=== PATIENT | female | born 1930 | race Caucasian/White ===

== ENCOUNTER → 2016-04-30 | Outpatient (CLI) | payer OTHER ==
[~2016-04-30] MED LIST: CARV3.122 PO; CLX20 PO; DORZ1SOL6 OPB; LATA0.009 OPB; LOSA50TA6 PO; MULT-506 PO; PANT40TA PO; PRMVC PV; RIVA1TAB4 PO; [UNRECOGNIZED DRUG - CODE] OPL
--- NOTE | 2016-04-30 09:06 | DIAGNOSTIC IMAGING REPORT ---
CHEST 2 VIEWS ROUTINE HISTORY: Cough. COMPARISON: Chest 10/30/2014. FINDINGS: Hazy appearance to the right medial lung base is consistent with prominent epicardial fat. This remains unchanged. Small nodular density at the right lateral lung base is secondary to a nipple shadow. No new focal lung consolidations. The heart is normal in size. No pleural effusions. No pneumothorax. IMPRESSION: No new focal lung consolidations to suggest pneumonia. Electronically signed by: Rashaun Rapp M.D. 04/30/2016 9:04 AM Dictated Date/Time: 04/30/2016 9:02 AM
== END | disposition home or self-care (01) ==
LOC: C.RAD 08:21
PROVIDERS: ATTEND Internal Medicine Pulmonary Disease
DX: R05 Cough (principal)

== ENCOUNTER → 2017-01-20 | Outpatient (CLI) | payer OTHER | END | disposition home or self-care (01) | LOC: C.MAMM 15:00 | PROVIDERS: ATTEND Physician Assistant | DX: M85.852 Other specified disorders of bone density and structure, left thigh (principal); M85.851 Other specified disorders of bone density and structure, right thigh; Z78.0 Asymptomatic menopausal state ==

== ENCOUNTER → 2017-02-04 | Outpatient (CLI) | payer OTHER ==
[2017-02-04 11:46] LABS: BASO % 0.8 %; BASO ABS # 0.03 K/uL (0-0.2); COMPLETE YES; EOS % 1.1 %; HEMATOCRIT 38.6 % (37-47); IG% 0.3 %; LYMPH % 25.2 %; LYMPH ABS # 0.95 K/uL (1.2-3.4); MEAN CELL VOLUME 94.6 fL (80-100); MEAN CORPUSCULAR HEMOGLOBIN 31.9 pg (25-34); MEAN CORPUSCULAR HGB CONC 33.7 g/dl (32-36); MEAN PLATELET VOLUME 11.7 fL (7.4-10.4); NEUT % 63.6 %; PLATELET COUNT 203 K/uL (130-400); RED BLOOD COUNT 4.08 M/uL (4.2-5.4); WHITE BLOOD COUNT 3.77 K/uL (4.8-10.8)
[2017-02-04 12:08] LABS: ALT/SGPT 18 U/L (12-78); AST/SGOT 15 U/L (15-37); BLOOD UREA NITROGEN 21 mg/dl (7-18); BUN/CREATININE RATIO 20.9 (10-20); CALCIUM 9.1 mg/dl (8.5-10.1); CARBON DIOXIDE 27 mmol/L (21-32); CHLORIDE 105 mmol/L (98-107); CHOLESTEROL 216 mg/dl (0-200); CREATININE 0.98 mg/dl (0.60-1.20); GLUCOSE 116 mg/dl (70-99); MAGNESIUM 2.3 mg/dl (1.8-2.4); POTASSIUM 3.9 mmol/L (3.5-5.1); SODIUM 139 mmol/L (136-145); TRIGLYCERIDES 95 mg/dl (0-150); VERY LOW DENSITY LIPOPROT CALC 19 mg/dl
[2017-02-04 12:20] LABS: ALKALINE PHOSPHATASE 76 U/L (45-117); CHOLESTEROL/HDL RATIO 3.7; HDL CHOLESTEROL 59 mg/dl; LDL CHOLESTEROL CALCULATED 138 mg/dl; TOTAL IRON BINDING CAPACITY 354 mcg/dl (250-450)
== END | disposition home or self-care (01) ==
LOC: C.LAB 09:23
PROVIDERS: ATTEND Physician Assistant
DX: Z23 Encounter for immunization (principal)

== ENCOUNTER → 2017-04-20 | Outpatient (CLI) | payer OTHER ==
--- NOTE | 2017-04-20 13:20 | DIAGNOSTIC IMAGING REPORT ---
L-SPINE MIN 4 VIEWS ROUTINE HISTORY: Pain. Neuropathy. M54.16 Lumbar [id number] COMPARISON: 05/31/2013 FINDINGS: There is no fracture. Grade 1 subluxation of L4 on L5 unchanged in the prior exam. Moderate degenerative disc change L4-L5 and more significantly at L5-S1. All findings are unchanged in the prior exam. No new or interval finding. IMPRESSION: Moderate stable scoliosis. Stable grade 1 anterolisthesis L4 on L5. Stable degenerative disc change The above report was generated using voice recognition software. It may contain grammatical, syntax or spelling errors. Electronically signed by: Jerson Chavez M.D. 04/20/2017 1:19 PM Dictated Date/Time: 04/20/2017 1:15 PM
--- NOTE | 2017-04-20 13:41 | DIAGNOSTIC IMAGING REPORT ---
PELVIS 1 OR 2 VIEW ROUTINE CLINICAL HISTORY: Strain of the flexor muscle of right hip. COMPARISON STUDY: CT of the abdomen and pelvis November 10, 2007. FINDINGS: The sacroiliac joints and symphysis pubis are intact. There is no fracture or suspicious lesion within the pelvis or hips by radiography. A left lower quadrant bowel anastomosis is noted. There is moderate bilateral hip osteoarthritis. IMPRESSION: 1. No acute fracture. 2. Moderate bilateral hip osteoarthritis. Electronically signed by: Sanjay Whitten M.D. 04/20/2017 1:40 PM Dictated Date/Time: 04/20/2017 1:38 PM
== END | disposition home or self-care (01) ==
LOC: C.RAD1850 12:45
PROVIDERS: ATTEND Physician Assistant
DX: M51.16 Intervertebral disc disorders with radiculopathy, lumbar region (principal); S76.011A Strain of muscle, fascia and tendon of right hip, initial encounter; X58.XXXA Exposure to other specified factors, initial encounter; M41.9 Scoliosis, unspecified; M43.16 Spondylolisthesis, lumbar region; M16.0 Bilateral primary osteoarthritis of hip

== ENCOUNTER → 2017-05-10 | Outpatient (CLI) | payer OTHER ==
--- NOTE | 2017-05-10 18:31 | DIAGNOSTIC IMAGING REPORT ---
LUMBAR SPINE W/O CONTRAST CLINICAL HISTORY: 87 years-old Female with M54.16 Lumbar [id number] Bulging lumbar discR20.2 Pares. COMPARISON: Lumbar spine radiograph 04/20/2017 TECHNIQUE: Multiplanar, multi sequence MRI of the lumbar spine was performed without intravenous contrast. FINDINGS: Mild levoscoliosis is again seen. No acute fracture, subluxation or focal bone marrow edema identified. 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 Unchanged 7 mm anterolisthesis L4 on L5 without definite pars defect identified, likely secondary to underlying long-standing facet disease as described below. Conus medullaris terminates at the L2 level. The imaged thoracic spinal cord appears unremarkable. Large [id number] jig builder helper localizer images demonstrate no gross abnormality of the imaged chest, abdomen or pelvis. No aortic aneurysm or adenopathy identified. T12-L1: Mild intervertebral disc space narrowing with small circumferential annular disc bulge and moderate facet arthrosis. There is flattening of the ventral thecal sac without significant central canal or foraminal narrowing. L1-L2: Mild to moderate intervertebral disc space narrowing with mild posterior spondylitic spurring, small circumferential annular disc bulge with extensive ligamentum flavum thickening and moderate facet arthrosis. There is mild central canal, with moderate left and severe right foraminal narrowing. L2-L3: Moderate intervertebral disc space narrowing with spondylitic spurring, circumferential annular disc bulge, marked ligamentum flavum thickening with severe facet arthrosis. AP dimension of the thecal sac is narrowed to 8 mm causing mild to moderate central canal with moderate left and severe right foraminal narrowing. L3-L4: Moderate intervertebral disc space narrowing with posterior spondylitic spurring and moderate to large circumferential disc bulge with ligamentum flavum thickening and severe facet arthrosis. Thecal sac is narrowed to 6 mm in AP dimension resulting in moderate to severe central canal, severe right and moderate to severe left foraminal stenosis. L4-L5: Grade 1 anterolisthesis with posterior spondylitic spurring, moderate intervertebral disc space narrowing with posterior disc bulge and disc uncovering. Additionally, there is severe facet arthrosis with ligamentum flavum thickening causing severe central canal and moderate to severe bilateral foraminal narrowing. L5-S1: Posterior spondylitic spurring with circumferential annular disc bulge, severe facet arthrosis with ligamentum flavum thickening. There is flattening of the ventral thecal sac without significant central canal stenosis. Moderate to severe bilateral foraminal stenosis. IMPRESSION: 1. Multilevel advanced discogenic degenerative changes with annular disc bulging, ligamentum flavum thickening and facet arthropathy as above. 2. Multifactorial degenerative changes cause severe central canal and moderate to severe bilateral foraminal narrowing at L4-L5. 3. Moderate to severe central canal stenosis at L3-L4. 4. 7 mm anterolisthesis L4 on L5 is likely secondary to long-standing facet arthrosis. 5. No acute fracture or subluxation identified. The above report was generated using voice recognition software. It may contain grammatical, syntax or spelling errors. Electronically signed by: Antione Wall M.D. 05/10/2017 6:30 PM Dictated Date/Time: 05/10/2017 3:11 PM
== END | disposition home or self-care (01) ==
LOC: C.MRI 13:31
PROVIDERS: ATTEND Physician Assistant
DX: M51.26 Other intervertebral disc displacement, lumbar region (principal); R20.2 Paresthesia of skin; M47.26 Other spondylosis with radiculopathy, lumbar region; M48.061 Spinal stenosis, lumbar region without neurogenic claudication

== ENCOUNTER 2017-10-16 23:22 | Inpatient (IN) | payer OTHER ==
[~2017-10-16] VITALS: Ht 165.1 cm; Wt 84.2 kg
[~2017-10-16 23:22] MED LIST changes: +APIX1TAB3 PO; +CARV12.52 PO; -CARV3.122 PO; +CITA-295 PO; -CLX20 PO; +HYZ/10015 PO; -LATA0.009 OPB; -LOSA50TA6 PO; +NASONEX NASAL SPRAY; -PRMVC PV; +PRMVC VAGRING; -RIVA1TAB4 PO; +RXC5 PO; +TRAV0.00 OP; -[UNRECOGNIZED DRUG - CODE] OPL
[2017-10-16] MEDS ORDERED: SODIUM CHLORIDE 0.9% 1000ML 1,000 ML IV STA (23:31)
--- NOTE | 2017-10-16 23:35 | EMERGENCY ROOM VISIT NOTE ---
History Report prepared by [place]: Everett Dyer Under the Supervision of: Dr. Alfredo Bean M.D. First contact with patient: 23:23 Chief Complaint: BACK PAIN Stated Complaint: Post-op back pain History of Present Illness The patient is a 87 year old female who presents to the Emergency Room with complaints of constant back pain that began 11 days ago. The patient states that she had a laminectomy performed on October 05. The patient states that she was discharged home a week ago. She states that she did have the drain removed. The patient states that she has had continued back pain that is less severe with laying down. The patient's son states that the patient was initially constipated. He reports that she then started to experience diarrhea and is now having normal bowel movements. The patient states she did have a normal bowel movement today. Her son reports the patient has not been eating as much as usual but state she has been drinking plenty of water. He notes the patient has been urinating frequently. The patient's son states the patient did have some abdominal discomfort today. The patient reports that whenever she stands up she has been lightheaded. The patient denies lower extremity discomfort, headache, nausea, and vomiting. She states that she has been taking Oxy IR for the pain. Her son reports the patient is supposed to switch to Tramadol but reports the medication has not been picked up yet. He notes the patient has not had Oxy Ir since yesterday at 0800. Source of History: patient Onset: 11 days ago Position: back Timing: constant Modifying Factors (Relieving): other (laying down) Associated Symptoms: + abdominal pain, + diarrhea (resolved), No headache, No nausea, No vomiting Note: Associated symptoms: lightheaded upon standing, resolved constipation Denies: lower extremity discomfort Review of Systems See HPI for pertinent positives & negatives. A total of 10 systems reviewed and were otherwise negative. Past Medical & Surgical Medical Problems: (1) Benign tumor of breast (2) Bleeding (3) bowel resection (4) Clostridium difficile infection (5) Depression (6) Glaucoma (7) History of - hysterectomy (8) left knee replacement (9) Lumbar stenosis with neurogenic claudication (10) Muscular headache (11) Postoperative back pain (12) varicose vein stripping Family History FH: cancer Social History Smoking Status: Former Smoker Alcohol Use: none Drug Use: none Marital Status: Housing Status: lives with family Occupation Status: retired Current/Historical Medications Scheduled Apixaban (Eliquis), 5 MG PO BID Carvedilol (Coreg), 12.5 MG PO BID Citalopram Hydrobromide (Citalopram), 1 TAB PO QAM Dorzolamide Hcl-Timolol Maleat (Cosopt Oph), 1 DROP OPB BID Estrogens, Conjugated (Premarin), 1 APPLN VAGRING WK Hctz/Losartan (Hyzaar 25MG/100MG), 1 TAB PO QAM Multivitamin (Multivitamin), 1 TAB PO QAM Pantoprazole (Protonix), 40 MG PO QDD Travoprost (Travatan Z), 1 DROPS OP HS Allergies Coded Allergies: Amoxicillin (Verified Allergy, Unknown, ITCHING, 10/17/17) Clindamycin (Verified Allergy, Unknown, ITCHING, 10/17/17) Penicillins (Verified Allergy, Unknown, ITCHING, 10/17/17) Physical Exam Vital Signs Date Time Temp Pulse Resp B/P (MAP) Pulse Ox O2 Delivery O2 Flow Rate FiO2 10/17/17 01:25 63 18 146/84 94 Room Air 10/16/17 23:44 36.8 62 20 157/84 97 Room Air Physical Exam GENERAL: Patient is elderly, well appearing, and in minimal acute distress. EYES: No scleral icterus, unremarkable pupils. ENT: Mucous membranes moist, no nasal congestion. NECK: No masses appreciated, no meningismus, trachea is midline. RESPIRATORY: No dyspnea. Clear to auscultation and equal bilaterally. No wheeze , no rhonchi. CARDIOVASCULAR: Regular rate and rhythm. No murmurs, rubs, gallops appreciated. GASTROINTESTINAL: Abdomen soft, nontender, no peritonitis. Bowel sounds positive. No masses appreciated. BACK: No midline tenderness, no CVA tenderness. Large vertical midline lumbar incision. Healing well. No swelling, no signs of infection. EXTREMITIES: Normal motion all extremities, no cyanosis, no edema. NEUROLOGIC: Alert and oriented, no acute motor or sensory deficits, no focal weakness, cranial nerves grossly intact. SKIN: No rash, no jaundice, no diaphoresis. Medical Decision & Procedures Laboratory Results 10/16/17 23:45 Red Blood Count 2.74, Mean Corpuscular Volume 88.3, Mean Corpuscular Hemoglobin 30.7, Mean Corpuscular Hemoglobin Concent 34.7, Mean Platelet Volume 9.0, Neutrophils (%) (Auto) 86.9, Lymphocytes (%) (Auto) 5.5, Monocytes (%) (Auto) 6.8, Eosinophils (%) (Auto) 0.2, Basophils (%) (Auto) 0.1, Neutrophils # (Auto) 7.49, Lymphocytes # (Auto) 0.47, Monocytes # (Auto) 0.59, Eosinophils # (Auto) 0.02, Basophils # (Auto) 0.01 10/16/17 23:45 Test 10/16/17 00:00 10/16/17 23:45 Urine Color YELLOW Urine Appearance CLEAR (CLEAR) Urine pH 5.0 (4.5-7.5) Urine Specific [place] 1.012 (1.000-1.030) Urine Protein NEG (NEG) Urine Glucose (UA) NEG (NEG) Urine Ketones NEG (NEG) Urine Occult Blood NEG (NEG) Urine Nitrite NEG (NEG) Urine Bilirubin NEG (NEG) Urine Urobilinogen NEG (NEG) Urine Leukocyte Esterase NEG (NEG) Urine WBC (Auto) 1-5 /hpf (0-5) Urine RBC (Auto) 0-4 /hpf (0-4) Urine Hyaline Casts (Auto) 1-5 /lpf (0-5) Urine Epithelial Cells (Auto) 0-5 /lpf (0-5) Urine Bacteria (Auto) NEG (NEG) White Blood Count 8.62 K/uL (4.8-10.8) Red Blood Count 2.74 M/uL (4.2-5.4) Hemoglobin 8.4 g/dL (12.0-16.0) Hematocrit 24.2 % (37-47) Mean Corpuscular Volume 88.3 fL (80-100) Mean Corpuscular Hemoglobin 30.7 pg (25-34) Mean Corpuscular Hemoglobin Concent 34.7 g/dl (32-36) Platelet Count 349 K/uL (130-400) Mean Platelet Volume 9.0 fL (7.4-10.4) Neutrophils (%) (Auto) 86.9 % Lymphocytes (%) (Auto) 5.5 % Monocytes (%) (Auto) 6.8 % Eosinophils (%) (Auto) 0.2 % Basophils (%) (Auto) 0.1 % Neutrophils # (Auto) 7.49 K/uL (1.4-6.5) Lymphocytes # (Auto) 0.47 K/uL (1.2-3.4) Monocytes # (Auto) 0.59 K/uL (0.11-0.59) Eosinophils # (Auto) 0.02 K/uL (0-0.5) Basophils # (Auto) 0.01 K/uL (0-0.2) RDW Standard Deviation 42.8 fL (36.4-46.3) RDW Coefficient of Variation 13.2 % (11.5-14.5) Immature Granulocyte % (Auto) 0.5 % Immature Granulocyte # (Auto) 0.04 K/uL (0.00-0.02) Red Blood Cell Morphology Unremarkable Anion Gap 9.0 mmol/L (3-11) Est Creatinine Clear Calc Drug Dose 29.8 ml/min Estimated GFR () 35.0 Estimated GFR (Non- 30.2 BUN/Creatinine Ratio 17.2 (10-20) Calcium Level 9.0 mg/dl (8.5-10.1) Laboratory results as reviewed by me. Medications Administered Medications (Trade) Dose Ordered Sig/Ajit Route Start Time Stop Time Status Last Admin Dose Admin Sodium Chloride 1,000 ml @ 999 mls/hr Q1H1M STAT IV 10/16/17 23:31 10/17/17 00:31 DC 10/16/17 00:05 999 MLS/HR Sodium Chloride 1,000 ml @ 80 mls/hr [id number] IV 10/17/17 01:45 11/16/17 01:44 10/17/17 03:25 80 MLS/HR ED Course 2326: The patient was evaluated in room B11B. A complete history and physical exam was performed. 2331: Ordered Sodium Chloride 1000 ml @ 999 mls/hr IV. 2335: I discussed the patient's case with her son. He updated me on the patient' s story. 0014: I reevaluated the patient and updated her on her results. I discussed the treatment plan with her and her family. They are agreeable to the plan. 0034: I reevaluated the patient and she is stable. Son notes he feels she is not doing well at home. I will talk to the Hospitalist for further evaluation. 0038: I discussed the patients case with Dr. Hamm [facility] Hospitalist. She understands the patients condition and agrees to accept the patient. The patient will be evaluated for further management and care. Medical Decision Differential: Musculoskeletal, Disc Herniation, Fracture, Cord Compression, Discitis, Infectious, Aortic Pathology, Renal Colic, UTI/Pyelonephritis, Acute Exacerbation of Chronic Pain, Sciatica, Cauda Equina, amongst other pathologies entertained. 87 yr old female with extensive lumbar surgery last week who has been on Oxy IR with worsening confusion and hallucinations. [place] that confusion/ hallucinations secondary to OXY IR thus stopped 2 days ago. Continued issues with worsening weakness. Not in much pain while laying still. Incision looks good. No clear evidence infection. UA clear. Na is quite dropped from baseline. Suspect her hyponatremia is contributing to weakness and confusion. HgB on low side but not requiring transfusion at this point (had transfusion post op due to bleeding). Son admits he doesn't feel she is doing well with home and feels she likely will need rehab once Na figured out. Lungs clear, abdomen soft and patient stable. No evidence meningitis either. Medication Reconcilliation Current Medication List: was personally reviewed by me Blood Pressure Screening Patient's blood pressure: Elevated blood pressure Referred to Hospitalist Consults Time Called: 37 Consulting Physician: Dr. Hamm [facility] Hospitalist Returned Call: 37 I discussed the patients case with Dr. Hamm [facility] Hospitalist. She understands the patients condition and agrees to accept the patient. The patient will be evaluated for further management and care. Impression Primary Impression: Hyponatremia Additional Impressions: Confusion Hallucination Generalized weakness Post-operative pain Scribe Attestation The scribe's documentation has been prepared under my direction and personally reviewed by me in its entirety. I confirm that the note above accurately reflects all work, treatment, procedures, and medical decision making performed by me. Departure Information Dispostion Being Evaluated By Hospitalist Referrals Shoaib Senior PA-C (PCP) Patient Instructions My [facility] Problem Qualifiers
[2017-10-16 23:58] LABS: BASO % 0.1 %; BASO ABS # 0.01 K/uL (0-0.2); EOS % 0.2 %; EOS ABS # 0.02 K/uL (0-0.5); HEMATOCRIT 24.2 % (37-47); HEMOGLOBIN 8.4 g/dL (12.0-16.0); IG# 0.04 K/uL (0.00-0.02); LYMPH % 5.5 %; LYMPH ABS # 0.47 K/uL (1.2-3.4); MEAN CELL VOLUME 88.3 fL (80-100); MEAN CORPUSCULAR HEMOGLOBIN 30.7 pg (25-34); MEAN CORPUSCULAR HGB CONC 34.7 g/dl (32-36); MONO % 6.8 %; MONO ABS # 0.59 K/uL (0.11-0.59); NEUT % 86.9 %; NEUT ABS # 7.49 K/uL (1.4-6.5); PLATELET COUNT 349 K/uL (130-400); RED CELL DISTRIBUTION WIDTH CV 13.2 % (11.5-14.5); RED CELL DISTRIBUTION WIDTH SD 42.8 fL (36.4-46.3); WHITE BLOOD COUNT 8.62 K/uL (4.8-10.8)
[2017-10-17] VITALS (8 sets, daily range): BP systolic 145–185; BP diastolic 73–85; PULSE 57–71; TEMP 36.5–36.8; O2SAT 91–96; Ht 165.1 cm; Wt 84.2 kg
[2017-10-17 00:14] LABS: CREATININE 1.55 mg/dl (0.60-1.20); POTASSIUM 3.4 mmol/L (3.5-5.1)
--- NOTE | 2017-10-17 00:50 | History and Physical ---
History & Physical Date & Time of Service: Oct 17, 2017 at 00:50 Chief Complaint: Post-op back pain Primary Care Physician: Shoaib Senior PA-C History of Present Illness Source: patient 87 yo F with PMHx of HTN, Afib on Eliquis, Lumbar Spinal stenosis s/p recent multilevel lumbar decompression( 10/05/17) discharged home with home health on 10/09. Patient reports that 4 days after discharge, October 13, she began having worsening back pain at site of surgery sight ranging from 3-8 /10, Pain has been constant. She was sent home Oxycodone IR q 4-5 hrs. Pain was not adequately relieved per patient. Patient's son also reports that she became more confused, and started having hallucinations. Son reports her saying she saw "tubes, lines ribbons or talking about events taking place in . Son informed home health nurses. Son subsequently stopped Oxycodone IR, Home health came this morning called in prescription of tramadol as an alternative. Prescription was not filled. Patient also reports chills as of today and dec'd appetite. No fevers, nausea, vomiting, abdominal pain, urinary changes, numbness weakness, tingling, headache , vision changes radicular pain. Currently she ambulates with walker. She suffered mechanical fall yesterday and denies injury, head trauma, preceding lightheadedness or dizziness. no LOC. Patient arrived in ED afebrile, VSS Hyponatremic at 127 , K 3.4, UA negative. Currently back pain is 2/10 without pain medication in ED. Past Medical/Surgical History Medical Problems: (1) Benign tumor of breast (2) Bleeding (3) bowel resection (4) Clostridium difficile infection (5) Depression (6) Glaucoma (7) History of - hysterectomy (8) left knee replacement (9) Lightheadedness (10) Lumbar stenosis with neurogenic claudication (11) Muscular headache (12) varicose vein stripping Family History FH: cancer Social History Smoking Status: Former Smoker Alcohol Use: none Drug Use: none Marital Status: Housing status: lives with family Occupational Status: retired Immunizations History of Influenza Vaccine: Yes Influenza Vaccine Date: Dec 30, 2008 History of Tetanus Vaccine?: No History of Pneumococcal: Yes Pneumococcal Date: Jan 09, 2005 History of Hepatitis B Vaccine: No Allergies Coded Allergies: Amoxicillin (Verified Allergy, Unknown, ITCHING, 10/17/17) Clindamycin (Verified Allergy, Unknown, ITCHING, 10/17/17) Penicillins (Verified Allergy, Unknown, ITCHING, 10/17/17) Home Medications Scheduled Apixaban (Eliquis), 5 MG PO BID Carvedilol (Coreg), 12.5 MG PO BID Citalopram Hydrobromide (Citalopram), 1 TAB PO QAM Dorzolamide Hcl-Timolol Maleat (Cosopt Oph), 1 DROP OPB BID Estrogens, Conjugated (Premarin), 1 APPLN VAGRING WK Hctz/Losartan (Hyzaar 25MG/100MG), 1 TAB PO QAM Multivitamin (Multivitamin), 1 TAB PO QAM Pantoprazole (Protonix), 40 MG PO QDD Travoprost (Travatan Z), 1 DROPS OP HS Review of Systems Constitutional: + chills, + weakness, No fever Respiratory: No cough, No sputum, No shortness of breath Cardiovascular: No chest pain, No edema, No palpitations Abdomen: No pain, No nausea, No vomiting Musculoskeletal: + swelling, + calf pain, + problem reported (Lower back pain) Genitourinary - Female: No dysuria, No urinary frequency, No urinary urgency Neurologic: No weakness, No numbness/tingling Integumentary: No rash, No itch Physical Exam Vital Signs Date Time Temp Pulse Resp B/P (MAP) Pulse Ox O2 Delivery O2 Flow Rate FiO2 10/16/17 23:44 36.8 62 20 157/84 97 Room Air GENERAL: alert, obese, no distress, EYE EXAM: normal conjunctiva, PERRL and EOM's grossly intact OROPHARYNX: no exudate, no erythema, lips, buccal mucosa, and tongue normal and mucous membranes are moist NECK: supple, no nuchal rigidity, no adenopathy, non-tender LUNGS: Clear to auscultation. Normal chest wall mechanics HEART: no murmurs, S1 normal and S2 normal ABDOMEN: abdomen soft, non-tender, normo-active bowel sounds, no masses, no rebound or guarding. BACK: s/p Lumbar decompression, Surgical wound clean dry intact, no surrounding erythema, purulent drainage SKIN: no rashes and no bruising UPPER EXTREMITIES: upper extremities are grossly normal. LOWER EXTREMITIES: No pitting edema. NEURO EXAM: AO x2 ( Person, place only), cranial nerves II-XII grossly intact, normal speech, no gross weakness of arms, no gross weakness of legs. Diagnostics Laboratory Results Results Past 24 Hours Test 10/16/17 23:45 Range/Units White Blood Count 8.62 4.8-10.8 K/uL Red Blood Count 2.74 4.2-5.4 M/uL Hemoglobin 8.4 12.0-16.0 g/dL Hematocrit 24.2 37-47 % Mean Corpuscular Volume 88.3 80-100 fL Mean Corpuscular Hemoglobin 30.7 25-34 pg Mean Corpuscular Hemoglobin Concent 34.7 32-36 g/dl Platelet Count 349 130-400 K/uL Mean Platelet Volume 9.0 7.4-10.4 fL Neutrophils (%) (Auto) 86.9 % Lymphocytes (%) (Auto) 5.5 % Monocytes (%) (Auto) 6.8 % Eosinophils (%) (Auto) 0.2 % Basophils (%) (Auto) 0.1 % Neutrophils # (Auto) 7.49 1.4-6.5 K/uL Lymphocytes # (Auto) 0.47 1.2-3.4 K/uL Monocytes # (Auto) 0.59 0.11-0.59 K/uL Eosinophils # (Auto) 0.02 0-0.5 K/uL Basophils # (Auto) 0.01 0-0.2 K/uL RDW Standard Deviation 42.8 36.4-46.3 fL RDW Coefficient of Variation 13.2 11.5-14.5 % Immature Granulocyte % (Auto) 0.5 % Immature Granulocyte # (Auto) 0.04 0.00-0.02 K/uL Red Blood Cell Morphology Unremarkable Sodium Level 127 136-145 mmol/L Potassium Level 3.4 3.5-5.1 mmol/L Chloride Level 92 98-107 mmol/L Carbon Dioxide Level 26 21-32 mmol/L Anion Gap 9.0 3-11 mmol/L Blood Urea Nitrogen 27 7-18 mg/dl Creatinine 1.55 0.60-1.20 mg/dl Est Creatinine Clear Calc Drug Dose 29.8 ml/min Estimated GFR () 35.0 Estimated GFR (Non- 30.2 BUN/Creatinine Ratio 17.2 10-20 Random Glucose 133 70-99 mg/dl Calcium Level 9.0 8.5-10.1 mg/dl Impression Assessment and Plan 87 yo F with PMHx of HTN, Afib on Eliquis, Lumbar Spinal stenosis s/p recent multilevel lumbar decompression( 10/05/17) discharged home with home health on 10/09 presenting with Acute back post-operative back pain in addition to history Acute confusion, Hallucination, Acute Back pain - history of Lumbar Spinal stenosis s/p recent multilevel lumbar decompression( 10/05/17) by Dr Tomlin - post-operative pain, wound clean dry intact, no evidence of infection - improved in ED without pain medication - pain control with PRN morphine - Consider oral conversion prior to discharge - Ortho consulted Hyponatremia - no clear etiology - ordered urine Na, serum osm - IN NS at 80 mls/hr - Recheck AM Atrial Fibrillation - rate controlled - Continue Home Metoprolol , Eliquis HTN - BP controlled - Continue Coreg, HCTZ/Losartan Disposition: Admit OT med/Surg DVT PPx: on Eliquis PT/OT Resuscitation Status VTE Prophylaxis Will order VTE Prophylaxis: Yes Note Total Time: Critical Care 30 - 74 minutes Resident Tracking Resident Involvement: Resident Care Provided Care Provided: Adult Hospital Medicine
[2017-10-17] MEDS ORDERED: ONDANSETRON INJ 2 MG/ML 2 ML VIAL IV PRN (01:45)
[2017-10-17] MEDS ORDERED: ACETAMINOPHEN 325 MG TAB PO PRN (01:45)
[2017-10-17] MEDS ORDERED: POLYETHYLENE (MIRALAX) 17 GM PACK PO PRN (01:45)
[2017-10-17] MEDS ORDERED: MAGNESIUM HYDROXIDE SUSP 30 ML UDC PO PRN (01:45)
[2017-10-17] MEDS ORDERED: MoRPHine SULFATE 4 MG/ML 1 ML CARP\\VIAL IM PRN (01:45)
[2017-10-17] MEDS ORDERED: ALUMINUM/MAGNESIUM/SIMETH (MAALOX MAX) 30 ML UDC PO PRN (01:45)
[2017-10-17] MEDS ORDERED: POTASSIUM CHLORIDE 10 MEQ TABCR PO STA (02:58)
[2017-10-17] MEDS: SODIUM CHLORIDE 0.9% 1000ML 1,000 ML IV SCH ×2 (03:25→17:13)
[2017-10-17] MEDS: MoRPHine SULFATE 2 MG/ML CARP IV PRN ×2 (03:26→08:56)
[2017-10-17] MEDS: APIXABAN 5 MG TAB PO SCH ×2 (08:31→20:35)
[2017-10-17] MEDS: CITALOPRAM 20 MG TAB PO SCH (08:31)
[2017-10-17] MEDS: CARVEDILOL 12.5 MG TAB PO SCH ×2 (08:35→20:36)
[2017-10-17] MEDS ORDERED: LOSARTAN/HCTZ 50-12.5 EA TAB PO SCH (09:00)
[2017-10-17 09:08] LABS: CALCIUM 8.7 mg/dl (8.5-10.1); CREATININE 1.43 mg/dl (0.60-1.20); POTASSIUM 3.4 mmol/L (3.5-5.1)
--- NOTE | 2017-10-17 11:36 | Orthopedic Consultation ---
Orthopedic Consultation Date of Consultation: Oct 17, 2017. Attending Physician: Mickey Galvin D.O. Reason for Consultation: Postoperative back pain History of Present Illness There is an 87-year-old female well known to our practice. On October 05, 2017 she underwent L2 through S1 including bilateral iliac bolts fixation by Dr. Tomlin. She went home on October 09. She had an uncomplicated hospital course. She presented to the emergency room last evening with confusion, back pain that was poorly controlled. She was also admitted with hyponatremia. This morning she was seen in conjunction with her son. She reports she is ambling with a walker at home. She was taking oxycodone at home alternating with Tylenol. Denies fevers or chills. She notes back pain and this morning she noted radiating to her left groin. No bowel or bladder changes. Past Medical/Surgical History Medical Problems: (1) Confusion Status: Acute (2) Generalized weakness Status: Acute (3) Hallucination Status: Acute (4) Hyponatremia Status: Acute (5) Post-operative pain Status: Acute Family History FH: cancer Social History Smoking Status: Former Smoker Alcohol Use: none Drug Use: none Marital Status: Housing Status: lives with family Occupation Status: retired Allergies Coded Allergies: Amoxicillin (Verified Allergy, Unknown, ITCHING, 10/17/17) Clindamycin (Verified Allergy, Unknown, ITCHING, 10/17/17) Penicillins (Verified Allergy, Unknown, ITCHING, 10/17/17) Home Medications Scheduled Apixaban (Eliquis), 5 MG PO BID Carvedilol (Coreg), 12.5 MG PO BID Citalopram Hydrobromide (Citalopram), 1 TAB PO QAM Dorzolamide Hcl-Timolol Maleat (Cosopt Oph), 1 DROP OPB BID Estrogens, Conjugated (Premarin), 1 APPLN VAGRING WK Hctz/Losartan (Hyzaar 25MG/100MG), 1 TAB PO QAM Multivitamin (Multivitamin), 1 TAB PO QAM Pantoprazole (Protonix), 40 MG PO QDD Travoprost (Travatan Z), 1 DROPS OP HS Current Inpatient Medications Current Inpatient Medications Medications (Trade) Dose Ordered Sig/Ajit Route Start Time Stop Time Status Last Admin Dose Admin Acetaminophen (Tylenol Tab) 650 mg Q4H PRN PO 10/17/17 01:45 11/16/17 01:44 Al Hydrox/Mg Hydrox/Simethicone (Maalox Max Susp) 15 ml Q4H PRN PO 10/17/17 01:45 11/16/17 01:44 Magnesium Hydroxide (Milk Of Magnesia Susp) 30 ml Q6H PRN PO 10/17/17 01:45 11/16/17 01:44 Polyethylene (Miralax Powder Packet) 17 gm DAILY PRN PO 10/17/17 01:45 11/16/17 01:44 Ondansetron HCl (Zofran Inj) 4 mg Q6H PRN IV 10/17/17 01:45 11/16/17 01:44 Apixaban (Eliquis) 5 mg BID PO 10/17/17 09:00 11/16/17 08:59 10/17/17 08:31 5 MG Carvedilol (Coreg Tab) 12.5 mg BID PO 10/17/17 09:00 11/16/17 08:59 10/17/17 08:35 12.5 MG Citalopram Hydrobromide (celeXA TAB) 20 mg QAM PO 10/17/17 09:00 11/16/17 08:59 10/17/17 08:31 20 MG Pantoprazole Sodium (Protonix Tab) 40 mg QDD PO 10/17/17 17:45 11/16/17 17:59 Sodium Chloride 1,000 ml @ 80 mls/hr [id number] IV 10/17/17 01:45 11/16/17 01:44 10/17/17 03:25 80 MLS/HR Morphine Sulfate (MoRPHine SULFATE INJ) 2 mg Q4H PRN IV 10/17/17 03:00 10/31/17 01:44 10/17/17 08:56 2 MG Review of Systems Back pain, confusion, left groin pain Physical Exam Date Time Temp Pulse Resp B/P (MAP) Pulse Ox O2 Delivery O2 Flow Rate FiO2 10/17/17 08:34 61 164/73 (103) 10/17/17 07:20 Room Air 10/17/17 07:17 157/78 (104) 10/17/17 06:58 36.8 61 18 185/85 (118) 91 Room Air 10/17/17 03:05 36.6 60 16 155/74 96 Room Air 10/17/17 03:05 Room Air 10/17/17 01:25 63 18 146/84 94 Room Air 10/16/17 23:44 36.8 62 20 157/84 97 Room Air She is lying in bed 318. Son is in the room. Patient is alert and oriented 3. She is in no obvious distress. She is able to roll over in bed for me unassisted and with ease. Lumbar incision is modest edema. No erythema. No purulent drainage. No ecchymosis. Lower extremities are neurovascular intact. Calf soft nontender bilaterally. Strength is intact bilaterally. General Appearance: no apparent distress Head: normocephalic Eyes: normal inspection ENT: hearing grossly normal Neck: supple Respiratory/Chest: no respiratory distress, no accessory muscle use Cardiovascular: regular rate, rhythm Abdomen/GI: soft Neurologic/Psych: normal mood/affect, oriented x 3 Skin: warm/dry Lymphatic: no adenopathy Laboratory Results Last 24 Hours Test 10/16/17 23:45 10/17/17 05:41 10/17/17 05:52 10/17/17 10:31 White Blood Count 8.62 K/uL Red Blood Count 2.74 M/uL Hemoglobin 8.4 g/dL Hematocrit 24.2 % Mean Corpuscular Volume 88.3 fL Mean Corpuscular Hemoglobin 30.7 pg Mean Corpuscular Hemoglobin Concent 34.7 g/dl Platelet Count 349 K/uL Mean Platelet Volume 9.0 fL Neutrophils (%) (Auto) 86.9 % Lymphocytes (%) (Auto) 5.5 % Monocytes (%) (Auto) 6.8 % Eosinophils (%) (Auto) 0.2 % Basophils (%) (Auto) 0.1 % Neutrophils # (Auto) 7.49 K/uL Lymphocytes # (Auto) 0.47 K/uL Monocytes # (Auto) 0.59 K/uL Eosinophils # (Auto) 0.02 K/uL Basophils # (Auto) 0.01 K/uL RDW Standard Deviation 42.8 fL RDW Coefficient of Variation 13.2 % Immature Granulocyte % (Auto) 0.5 % Immature Granulocyte # (Auto) 0.04 K/uL Red Blood Cell Morphology Unremarkable Sodium Level 127 mmol/L 130 mmol/L Potassium Level 3.4 mmol/L 3.4 mmol/L Chloride Level 92 mmol/L 95 mmol/L Carbon Dioxide Level 26 mmol/L 27 mmol/L Anion Gap 9.0 mmol/L 8.0 mmol/L Blood Urea Nitrogen 27 mg/dl 26 mg/dl Creatinine 1.55 mg/dl 1.43 mg/dl Est Creatinine Clear Calc Drug Dose 29.8 ml/min 30.8 ml/min Estimated GFR () 35.0 38.6 Estimated GFR (Non- 30.2 33.3 BUN/Creatinine Ratio 17.2 18.0 Random Glucose 133 mg/dl 119 mg/dl Calcium Level 9.0 mg/dl 8.7 mg/dl Osmolality 268 mOsm/kg Urine Random Sodium 36 mEq/L Assessment & Plan Assessment: Admission to the hospital secondary to confusion, hyponatremia, postoperative back pain. Plan: Most likely her confusion was secondary to her oxycodone. will tread lightly with narcotics.. This has since been discontinued. I have ordered tramadol. She has a PT/OTconsult ordered. Would recommend SNF versus acute rehab placement upon discharge from this hospital stay. DVT prophylaxis is in the form of teds and SCDs. She is on her normal Eliquis as well that she takes at home. She may be ambulatory ad marichuy. we will continue to follow with you.
[2017-10-17] MEDS: TRAMADOL HCL 50 MG TAB PO PRN ×2 (13:19→17:12)
--- NOTE | 2017-10-17 16:47 | Family Medicine Progress Note ---
Progress Note Date of Service Oct 17, 2017. Subjective Pt evaluation today including: conversation w/ patient, physical exam, chart review, lab review Pain: 4/10 PO Intake: tolerating Voiding: no voiding problems Patient was resting comfortably when I examined her this morning. Reports sleeping well overnight. She is tolerating her diet although not super hungry, denies N/V. Pt reports She is toileting appropriately. Pt endorses pain in the back, near the surgical site, and that wraps around her groin to the front. Constitutional: No fever, No chills, No sweats ENT: No hearing loss Respiratory: No cough, No sputum, No wheezing Cardiovascular: No chest pain, No edema Abdomen: No nausea, No vomiting, No diarrhea, No constipation Musculoskeletal: + problem reported (Back pain wraps around to the groin), No calf pain Heme: No abnormal bleeding/bruising, No clotting problems Skin: No rash, No itch, No new/changing skin lesions All Other Systems: Reviewed and Negative Medications Current Inpatient Medications Medications (Trade) Dose Ordered Sig/Ajit Route Start Time Stop Time Status Last Admin Dose Admin Acetaminophen (Tylenol Tab) 650 mg Q4H PRN PO 10/17/17 01:45 11/16/17 01:44 Al Hydrox/Mg Hydrox/Simethicone (Maalox Max Susp) 15 ml Q4H PRN PO 10/17/17 01:45 11/16/17 01:44 Magnesium Hydroxide (Milk Of Magnesia Susp) 30 ml Q6H PRN PO 10/17/17 01:45 11/16/17 01:44 Polyethylene (Miralax Powder Packet) 17 gm DAILY PRN PO 10/17/17 01:45 11/16/17 01:44 Ondansetron HCl (Zofran Inj) 4 mg Q6H PRN IV 10/17/17 01:45 11/16/17 01:44 Apixaban (Eliquis) 5 mg BID PO 10/17/17 09:00 11/16/17 08:59 10/17/17 08:31 5 MG Carvedilol (Coreg Tab) 12.5 mg BID PO 10/17/17 09:00 11/16/17 08:59 10/17/17 08:35 12.5 MG Citalopram Hydrobromide (celeXA TAB) 20 mg QAM PO 10/17/17 09:00 11/16/17 08:59 10/17/17 08:31 20 MG Pantoprazole Sodium (Protonix Tab) 40 mg QDD PO 10/17/17 17:45 11/16/17 17:59 Sodium Chloride 1,000 ml @ 80 mls/hr [id number] IV 10/17/17 01:45 11/16/17 01:44 10/17/17 03:25 80 MLS/HR Morphine Sulfate (MoRPHine SULFATE INJ) 2 mg Q4H PRN IV 10/17/17 03:00 10/31/17 01:44 10/17/17 08:56 2 MG Tramadol HCl (Ultram Tab) 50 mg Q4H PRN PO 10/17/17 11:30 11/16/17 11:29 10/17/17 13:19 50 MG Objective Vital Signs Date Time Temp Pulse Resp B/P (MAP) Pulse Ox O2 Delivery O2 Flow Rate FiO2 10/17/17 14:53 36.5 57 18 145/85 (105) 95 Room Air 10/17/17 13:09 146/76 (99) 10/17/17 08:34 61 164/73 (103) 10/17/17 07:20 Room Air 10/17/17 07:17 157/78 (104) 10/17/17 06:58 36.8 61 18 185/85 (118) 91 Room Air 10/17/17 03:05 36.6 60 16 155/74 96 Room Air 10/17/17 03:05 Room Air 10/17/17 01:25 63 18 146/84 94 Room Air 10/16/17 23:44 36.8 62 20 157/84 97 Room Air Physical Exam Notes: GENERAL: alert, obese, no distress, EYE EXAM: normal conjunctiva, PERRL and EOM's grossly intact OROPHARYNX: no exudate, no erythema, lips, buccal mucosa, and tongue normal and mucous membranes are moist NECK: supple, no nuchal rigidity, no adenopathy, non-tender LUNGS: Clear to auscultation. Normal chest wall mechanics HEART: no murmurs, S1 normal and S2 normal ABDOMEN: abdomen soft, non-tender, normo-active bowel sounds, no masses, no rebound or guarding. BACK: s/p Lumbar decompression, Surgical wound clean dry intact, no surrounding erythema, purulent drainage SKIN: no rashes and no bruising UPPER EXTREMITIES: upper extremities are grossly normal. LOWER EXTREMITIES: No pitting edema. NEURO EXAM: AO x2 ( Person, place only), cranial nerves II-XII grossly intact, normal speech, no gross weakness of arms, no gross weakness of legs. Laboratory Results Last Resulted 10/16/17 23:45 Red Blood Count 2.74, Mean Corpuscular Volume 88.3, Mean Corpuscular Hemoglobin 30.7, Mean Corpuscular Hemoglobin Concent 34.7, Mean Platelet Volume 9.0, Neutrophils (%) (Auto) 86.9, Lymphocytes (%) (Auto) 5.5, Monocytes (%) (Auto) 6.8, Eosinophils (%) (Auto) 0.2, Basophils (%) (Auto) 0.1, Neutrophils # (Auto) 7.49, Lymphocytes # (Auto) 0.47, Monocytes # (Auto) 0.59, Eosinophils # (Auto) 0.02, Basophils # (Auto) 0.01 Last Resulted 10/17/17 05:52 Assessment and Plan 87 yo F with PMHx of HTN, Afib on Eliquis, Lumbar Spinal stenosis s/p recent multilevel lumbar decompression( 10/05/17) discharged home with home health on 10/09 presenting with Acute back post-operative back pain in addition to history Acute confusion, Hallucination, Confusion/Hallucinations - Pt is on outpatient Xanex likely contributing to present presentation. - Xanex + Oxycodone IR can cause confusion/hallucination - likely a component of sundowning as well Acute Back pain - history of Lumbar Spinal stenosis s/p recent multilevel lumbar decompression( 10/05/17) by Dr Tomlin - post-operative pain, wound clean dry intact, no evidence of infection - improved in ED without pain medication - pain control with PRN morphine - Consider oral conversion --> Tramadol PER ORTHO - Ortho consulted "-Confusion was secondary to her oxycodone. -Tread lightly with narcotics.. -Tramadol was ordered . -PT/OTconsult ordered. -SNF versus acute rehab placement upon discharge -on her normal Eliquis that she takes at home." Hyponatremia - no clear etiology - ordered urine Na, serum osm - IN NS at 80 mls/hr - Recheck AM Atrial Fibrillation - rate controlled - Continue Home Metoprolol , Eliquis HTN - BP controlled - Continue Coreg, HCTZ/Losartan Disposition: Admit OT med/Surg DVT PPx: on Eliquis PT/OT Resident Physician Supervision Note: I interviewed and examined the patient. Discussed with Dr. Hamm and agree with findings and plan as documented in the note. Any exceptions or clarifications are listed here: None Documented By: Mickey Galvin feeling a bit better but still confused off and on - but is able to catch herself and note that she's getting confused not eating well at home either vitals noted nad breathing unlabored no pallor or icterus delirium -oxycodone + benzo + hyponatremia -correcting underlying causes -improving hyponatremic dehydration -improving w fluids L2 radiculopathy -ortho input, PT/OT eval and treat otherwise as above Resident Tracking Resident Involvement: Resident Care Provided Care Provided: Adult Hospital Medicine
[2017-10-17] MEDS: PANTOprazole SOD 40 MG TAB PO SCH (17:12)
[2017-10-18] VITALS (7 sets, daily range): BP systolic 162–174; BP diastolic 73–93; PULSE 65–76; TEMP 36.7–36.9; O2SAT 91–93
[2017-10-18] MEDS: TRAMADOL HCL 50 MG TAB PO PRN ×2 (02:54→15:08)
[2017-10-18] MEDS: SODIUM CHLORIDE 0.9% 1000ML 1,000 ML IV SCH ×2 (04:37→15:06)
[2017-10-18 06:23] LABS: BASO % 0.1 %; BASO ABS # 0.01 K/uL (0-0.2); EOS % 0.1 %; EOS ABS # 0.01 K/uL (0-0.5); HEMATOCRIT 27.5 % (37-47); HEMOGLOBIN 9.4 g/dL (12.0-16.0); IG# 0.04 K/uL (0.00-0.02); LYMPH % 4.5 %; LYMPH ABS # 0.49 K/uL (1.2-3.4); MEAN CORPUSCULAR HEMOGLOBIN 30.4 pg (25-34); MEAN CORPUSCULAR HGB CONC 34.2 g/dl (32-36); MEAN PLATELET VOLUME 9.3 fL (7.4-10.4); MONO % 9.1 %; MONO ABS # 0.99 K/uL (0.11-0.59); NEUT % 85.8 %; NEUT ABS # 9.29 K/uL (1.4-6.5); PLATELET COUNT 358 K/uL (130-400); RED CELL DISTRIBUTION WIDTH CV 13.7 % (11.5-14.5); RED CELL DISTRIBUTION WIDTH SD 44.5 fL (36.4-46.3); WHITE BLOOD COUNT 10.83 K/uL (4.8-10.8)
[2017-10-18 06:56] LABS: CALCIUM 8.6 mg/dl (8.5-10.1); CREATININE 1.06 mg/dl (0.60-1.20); POTASSIUM 3.6 mmol/L (3.5-5.1)
[2017-10-18] MEDS: CITALOPRAM 20 MG TAB PO SCH (08:32)
[2017-10-18] MEDS: APIXABAN 5 MG TAB PO SCH ×2 (08:32→21:22)
[2017-10-18] MEDS: CARVEDILOL 12.5 MG TAB PO SCH ×2 (08:36→21:22)
--- NOTE | 2017-10-18 10:52 | Family Medicine Progress Note ---
Progress Note Date of Service Oct 18, 2017. Subjective Pt evaluation today including: conversation w/ patient, physical exam, chart review, lab review Pain: 4.5/10 PO Intake: Tolerating Voiding: no voiding problems Patient reports sleeping well last night. Reports medication helps with sleep and pain, she is tolerating it well. Still reports surgical site pain wrapping around to the groin. She is voiding appropriately and reports constipation. Reports feeling significantly better. Additional Comments: Constitutional: No fever, No chills, No sweats ENT: No hearing loss Respiratory: No cough, No sputum, No wheezing Cardiovascular: No chest pain, No edema Abdomen: No nausea, No vomiting, No diarrhea, Constipation Musculoskeletal: + problem reported (Back pain wraps around to the groin), No calf pain Heme: No abnormal bleeding/bruising, No clotting problems Skin: No rash, No itch, No new/changing skin lesions All Other Systems: Reviewed and Negative Medications Current Inpatient Medications Medications (Trade) Dose Ordered Sig/Ajit Route Start Time Stop Time Status Last Admin Dose Admin Acetaminophen (Tylenol Tab) 650 mg Q4H PRN PO 10/17/17 01:45 11/16/17 01:44 Al Hydrox/Mg Hydrox/Simethicone (Maalox Max Susp) 15 ml Q4H PRN PO 10/17/17 01:45 11/16/17 01:44 Magnesium Hydroxide (Milk Of Magnesia Susp) 30 ml Q6H PRN PO 10/17/17 01:45 11/16/17 01:44 Polyethylene (Miralax Powder Packet) 17 gm DAILY PRN PO 10/17/17 01:45 11/16/17 01:44 Ondansetron HCl (Zofran Inj) 4 mg Q6H PRN IV 10/17/17 01:45 11/16/17 01:44 Apixaban (Eliquis) 5 mg BID PO 10/17/17 09:00 11/16/17 08:59 10/18/17 08:32 5 MG Carvedilol (Coreg Tab) 12.5 mg BID PO 10/17/17 09:00 11/16/17 08:59 10/18/17 08:36 12.5 MG Citalopram Hydrobromide (celeXA TAB) 20 mg QAM PO 10/17/17 09:00 11/16/17 08:59 10/18/17 08:32 20 MG Pantoprazole Sodium (Protonix Tab) 40 mg QDD PO 10/17/17 17:45 11/16/17 17:59 10/17/17 17:12 40 MG Sodium Chloride 1,000 ml @ 80 mls/hr [id number] IV 10/17/17 01:45 11/16/17 01:44 10/18/17 04:37 80 MLS/HR Morphine Sulfate (MoRPHine SULFATE INJ) 2 mg Q4H PRN IV 10/17/17 03:00 10/31/17 01:44 10/17/17 08:56 2 MG Tramadol HCl (Ultram Tab) 50 mg Q4H PRN PO 10/17/17 11:30 11/16/17 11:29 10/18/17 02:54 50 MG Objective Vital Signs Date Time Temp Pulse Resp B/P (MAP) Pulse Ox O2 Delivery O2 Flow Rate FiO2 10/18/17 08:48 36.7 72 16 163/85 (111) 91 Room Air 10/18/17 08:34 36.7 65 18 166/93 (117) 92 Room Air 10/18/17 07:15 Room Air 10/17/17 23:40 Room Air 10/17/17 23:39 36.7 70 16 155/81 (105) 91 Room Air 10/17/17 20:37 71 162/82 (108) 10/17/17 15:49 Room Air 10/17/17 14:53 36.5 57 18 145/85 (105) 95 Room Air 10/17/17 13:09 146/76 (99) Physical Exam Notes: GENERAL: alert, obese, no distress, EYE EXAM: normal conjunctiva, PERRL and EOM's grossly intact OROPHARYNX: no exudate, no erythema, lips, buccal mucosa, and tongue normal and mucous membranes are moist NECK: supple, no nuchal rigidity, no adenopathy, non-tender LUNGS: Clear to auscultation. Normal chest wall mechanics HEART: no murmurs, S1 normal and S2 normal ABDOMEN: abdomen soft, non-tender, normo-active bowel sounds, no masses, no rebound or guarding. BACK: s/p Lumbar decompression, Surgical wound clean dry intact, no surrounding erythema, purulent drainage SKIN: no rashes and no bruising UPPER EXTREMITIES: upper extremities are grossly normal. LOWER EXTREMITIES: No pitting edema. NEURO EXAM: AO x2 ( Person, place only), cranial nerves II-XII grossly intact, normal speech, no gross weakness of arms, no gross weakness of legs. Laboratory Results Last Resulted 10/18/17 06:02 Red Blood Count 3.09, Mean Corpuscular Volume 89.0, Mean Corpuscular Hemoglobin 30.4, Mean Corpuscular Hemoglobin Concent 34.2, Mean Platelet Volume 9.3, Neutrophils (%) (Auto) 85.8, Lymphocytes (%) (Auto) 4.5, Monocytes (%) (Auto) 9.1, Eosinophils (%) (Auto) 0.1, Basophils (%) (Auto) 0.1, Neutrophils # (Auto) 9.29, Lymphocytes # (Auto) 0.49, Monocytes # (Auto) 0.99, Eosinophils # (Auto) 0.01, Basophils # (Auto) 0.01 Last Resulted 10/18/17 06:02 Assessment and Plan 87 yo F with PMHx of HTN, Afib on Eliquis, Lumbar Spinal stenosis s/p recent multilevel lumbar decompression( 10/05/17) discharged home with home health on 10/09 presenting with Acute back post-operative back pain in addition to history Acute confusion, Hallucination, Confusion/Hallucinations - Pt is on outpatient Xanex likely contributing to present presentation. - Xanex + Oxycodone IR can cause confusion/hallucination - likely a component of sundowning as well -Patient is improving Acute Back pain - history of Lumbar Spinal stenosis s/p recent multilevel lumbar decompression( 10/05/17) by Dr Tomlin - post-operative pain, wound clean dry intact, no evidence of infection - improved in ED without pain medication - pain control with PRN morphine and tramadol 50 mg - Ortho consulted "-Confusion was secondary to her oxycodone. -Tread lightly with narcotics.. -Tramadol was ordered . -PT/OTconsult ordered. -SNF versus acute rehab placement upon discharge -on her normal Eliquis that she takes at home." Hyponatremia - no clear etiology - ordered urine Na, serum osm - IN NS at 80 mls/hr - Recheck AM - Improving on IVF Atrial Fibrillation - rate controlled - Continue Home Metoprolol , Eliquis HTN - BP controlled - Continue Coreg, HCTZ/Losartan Disposition: Admit OT med/Surg Discharge: to a snf/rehab facility. likely tomorrow DVT PPx: on Elilaciis PT/OT Resident Physician Supervision Note: I interviewed and examined the patient. Discussed with Dr. Hamm and agree with findings and plan as documented in the note. Any exceptions or clarifications are listed here: None Documented By: Mickey Galvin feeling better - still feels a little cloudy but better for rehab - hopefully tomorrow wiating on ortho input in regards to xrays vitals noted nad breathing unlabored no pallor or icterus delirium -oxycodone + benzo + hyponatremia -correct underlying causes -improving hyponatremic dehydration -improving w fluids, continue to follow L2 radiculopathy -ortho input appreciated, PT/OT eval and treat otherwise as above Continued [facility] stay due to: home environment unsafe for pt Discharge planning: rehab hospital Resident Tracking Resident Involvement: Resident Care Provided Care Provided: Adult Hospital Medicine
--- NOTE | 2017-10-18 13:08 | Progress Note ---
Progress Note Date of Service Oct 18, 2017. Progress Note Patient complaining mostly of left groin pain with activity. She denies any radicular or neurogenic complaints. Back pain is controlled. On exam she has good strength testing she exhibits a positive logroll on the left. Assessment status post lower lumbar fusion for plan at this time we will obtain x-rays of the back and pelvis today. We are awaiting placement for rehab.
--- NOTE | 2017-10-18 13:49 | DIAGNOSTIC IMAGING REPORT ---
PELVIS 1 OR 2 VIEW ROUTINE CLINICAL HISTORY: hip pain COMPARISON STUDY: 04/20/2017 FINDINGS: There are mild osteoarthritic changes present within the hips. No fractures are visualized. There are postsurgical changes present within the lumbar spine. There are bilateral sacroiliac bolts. IMPRESSION: 1. Postsurgical changes 2. Mild osteoarthritic changes within the hips 3. No acute fractures. Electronically signed by: Tan Cifuentes M.D. 10/18/2017 1:48 PM Dictated Date/Time: 10/18/2017 1:47 PM
--- NOTE | 2017-10-18 13:50 | DIAGNOSTIC IMAGING REPORT ---
LUMBAR SPINE 2 OR 3 VIEWS CLINICAL HISTORY: post op standing films COMPARISON STUDY: 04/20/2017 FINDINGS: Findings consistent with posterior laminectomy and fusion from L1 through S1. Moderate degenerative disc change. Hardware appears to be intact. Bilateral orthogonal sacroiliac bolts are present. IMPRESSION: Extensive operative changes consistent with laminectomy and fusion from L1 through S1 with bilateral sacroiliac bolt placement. The above report was generated using voice recognition software. It may contain grammatical, syntax or spelling errors. Electronically signed by: Jerson Chavez M.D. 10/18/2017 1:49 PM Dictated Date/Time: 10/18/2017 1:47 PM
[2017-10-18] MEDS: PANTOprazole SOD 40 MG TAB PO SCH (17:28)
[2017-10-19] MEDS: SODIUM CHLORIDE 0.9% 1000ML 1,000 ML IV SCH (02:31)
[2017-10-19 06:51] LABS: CALCIUM 8.3 mg/dl (8.5-10.1); CREATININE 0.83 mg/dl (0.60-1.20); POTASSIUM 3.4 mmol/L (3.5-5.1)
--- NOTE | 2017-10-19 07:05 | Family Medicine Progress Note ---
Progress Note Date of Service Oct 19, 2017. Medications Current Inpatient Medications Medications (Trade) Dose Ordered Sig/Ajit Route Start Time Stop Time Status Last Admin Dose Admin Acetaminophen (Tylenol Tab) 650 mg Q4H PRN PO 10/17/17 01:45 11/16/17 01:44 Al Hydrox/Mg Hydrox/Simethicone (Maalox Max Susp) 15 ml Q4H PRN PO 10/17/17 01:45 11/16/17 01:44 Magnesium Hydroxide (Milk Of Magnesia Susp) 30 ml Q6H PRN PO 10/17/17 01:45 11/16/17 01:44 Polyethylene (Miralax Powder Packet) 17 gm DAILY PRN PO 10/17/17 01:45 11/16/17 01:44 Ondansetron HCl (Zofran Inj) 4 mg Q6H PRN IV 10/17/17 01:45 11/16/17 01:44 Apixaban (Eliquis) 5 mg BID PO 10/17/17 09:00 11/16/17 08:59 10/18/17 21:22 5 MG Carvedilol (Coreg Tab) 12.5 mg BID PO 10/17/17 09:00 11/16/17 08:59 10/18/17 21:22 12.5 MG Citalopram Hydrobromide (celeXA TAB) 20 mg QAM PO 10/17/17 09:00 11/16/17 08:59 10/18/17 08:32 20 MG Pantoprazole Sodium (Protonix Tab) 40 mg QDD PO 10/17/17 17:45 11/16/17 17:59 10/18/17 17:28 40 MG Sodium Chloride 1,000 ml @ 80 mls/hr [id number] IV 10/17/17 01:45 11/16/17 01:44 10/19/17 02:31 80 MLS/HR Morphine Sulfate (MoRPHine SULFATE INJ) 2 mg Q4H PRN IV 10/17/17 03:00 10/31/17 01:44 10/17/17 08:56 2 MG Tramadol HCl (Ultram Tab) 50 mg Q4H PRN PO 10/17/17 11:30 11/16/17 11:29 10/18/17 15:08 50 MG Objective Vital Signs Date Time Temp Pulse Resp B/P (MAP) Pulse Ox O2 Delivery O2 Flow Rate FiO2 10/19/17 00:07 Room Air 10/18/17 22:57 36.9 76 16 174/73 (106) 91 Room Air 10/18/17 21:20 66 174/83 (113) 10/18/17 19:55 93 Room Air 10/18/17 15:28 36.7 67 18 162/78 (106) 93 Room Air 10/18/17 15:00 Room Air 10/18/17 12:28 68 17 165/82 (109) 93 Room Air 10/18/17 08:48 36.7 72 16 163/85 (111) 91 Room Air 10/18/17 08:34 36.7 65 18 166/93 (117) 92 Room Air 10/18/17 07:15 Room Air Laboratory Results Results Past 24 Hours Test 10/19/17 06:08 Range/Units Sodium Level 131 136-145 mmol/L Potassium Level 3.4 3.5-5.1 mmol/L Chloride Level 100 98-107 mmol/L Carbon Dioxide Level 24 21-32 mmol/L Anion Gap 7.0 3-11 mmol/L Blood Urea Nitrogen 14 7-18 mg/dl Creatinine 0.83 0.60-1.20 mg/dl Est Creatinine Clear Calc Drug Dose 53.1 ml/min Estimated GFR () 74.5 Estimated GFR (Non- 64.3 BUN/Creatinine Ratio 16.5 10-20 Random Glucose 135 70-99 mg/dl Calcium Level 8.3 8.5-10.1 mg/dl Assessment and Plan 87 yo F with PMHx of HTN, Afib on Eliquis, Lumbar Spinal stenosis s/p recent multilevel lumbar decompression( 10/05/17) discharged home with home health on 10/09 presenting with Acute back post-operative back pain in addition to history Acute confusion, Hallucination, Confusion/Hallucinations - Pt is on outpatient Xanex likely contributing to present presentation. - Xanex + Oxycodone IR can cause confusion/hallucination - likely a component of sundowning as well -Patient is improving Acute Back pain - history of Lumbar Spinal stenosis s/p recent multilevel lumbar decompression( 10/05/17) by Dr Tolmin - post-operative pain, wound clean dry intact, no evidence of infection - improved in ED without pain medication - pain control with PRN morphine and tramadol 50 mg - Ortho consulted "-Confusion was secondary to her oxycodone. -Tread lightly with narcotics.. -Tramadol was ordered . -PT/OTconsult ordered. -SNF versus acute rehab placement upon discharge -on her normal Eliquis that she takes at home." Hyponatremia - no clear etiology - ordered urine Na, serum osm - IN NS at 80 mls/hr - Recheck AM - Improving on IVF Atrial Fibrillation - rate controlled - Continue Home Metoprolol , Eliquis HTN - BP controlled - Continue Coreg, HCTZ/Losartan Disposition: Admit OT med/Surg Discharge: to a snf/rehab facility. likely tomorrow DVT PPx: on Eliquis PT/OT Resident Physician Supervision Note: I interviewed and examined the patient. Discussed with Dr. Hamm and agree with findings and plan as documented in the note. Any exceptions or clarifications are listed here: None Documented By: Mickey Galvin feeling about the same, maybe a little better, definitely not worse vitals noted nad breathing unlabored no pallor or icterus hyponatremia/pain meds --> delirium/encephalopathy picture -doing better -anticipate SNF Resident Tracking Resident Involvement: Resident Care Provided Care Provided: Adult Hospital Medicine
[2017-10-19 07:12] VITALS: BP 164/89; PULSE 64; TEMP 36.8; O2SAT 92
[2017-10-19] MEDS: CARVEDILOL 12.5 MG TAB PO SCH (07:17)
[2017-10-19] MEDS: APIXABAN 5 MG TAB PO SCH (08:52)
[2017-10-19] MEDS: CITALOPRAM 20 MG TAB PO SCH (08:52)
[2017-10-19 13:26] VITALS: BP 164/89; PULSE 64; TEMP 36.8; O2SAT 92
[2017-10-19] MEDS ORDERED: ULT50X PO (14:17)
--- NOTE | 2017-10-19 14:22 | Discharge Instructions ---
Discharge Instructions Date of Service Oct 19, 2017. Admission Reason for Admission: Confusion, Hyponatremia, Post Op Back Pain Discharge Discharge Diagnosis / Problem: delirium - multifactorial; weakness/back pain Discharge Goals Goal(s): Diagnostic testing, Therapeutic intervention Activity Recommendations Activity Level: Assistance Required Therapies: Physical Therapy, Occupational Therapy . Additional Information Patient informed of condition: Yes Advance Directives: Yes DNR: No Level of Care: Skilled (rehab emphasis) Communicable Disease: No Prognosis: Improving Instructions / Follow-Up Instructions / Follow-Up delirium -appears to be multifactorial -elements of toxic encephalopathy from pain medications - has been doing better on tramadol (oxycodone apparently was more problematic at home) - but still would use tramadol sparingly -elements of metabolic encephalopathy related to hyponatremia (which appeared to be hyponatremic dehydration predominantly related to poor oral intake) -stable, mental status waxes and wanes - has a bit of a propensity towards hallucination/delusion with the delirium - but with reorientation and reassurance she seems to be able to separate real from unreal -ongoing supportive care, ongoing observation hyponatremia -as above - appearing to be hyponatremic dehydration - follow PO intake and follow BMP approximately every other day until situation entirely stable back pain/weakness -s/p lumbar decompressive surgery -follows augustine [facility] Current Hospital Diet Patient's current hospital diet: Regular Diet Discharge Diet Recommended Diet: Regular Diet Pending Studies Studies pending at discharge: no Medical Emergencies . Who to Call and When: Medical Emergencies: If at any time you feel your situation is an emergency, please call 911 immediately. . Non-Emergent Contact Non-Emergency issues call your: Primary Care Provider, Surgeon . . "Provider Documentation" section prepared by Mickey Galvin. . Core Measure Problem Core Measures: None
[2017-10-19] MEDS: TRAMADOL HCL 50 MG TAB PO PRN (14:41)
--- NOTE | 2017-10-19 15:22 | Progress Note ---
Progress Note Date of Service Oct 19, 2017. Progress Note Patient states her back pain is relatively well controlled. She is now experiencing some right groin pain left does not so uncomfortable today. She is has been up and amatory with therapy and how this well. Vital signs are stable. On exam she is able to sit up in bed without difficulty is good strength testing. Assessment status post lumbar decompression fusion per plan at this time she is going to rehab today we will see her back in the next few weeks continue to follow her and obtain updated x-rays.
--- NOTE | 2017-10-19 17:44 | Discharge Summary ---
Discharge Summary Date of Service Oct 19, 2017. Discharge Summary Admission Date: Oct 17, 2017 at 02:01 Discharge Date: Oct 19, 2017 Discharge Disposition: snf facility Principal Diagnosis: multifactorial delirium Immunizations: Have You Had Influenza Vaccine: Yes Influenza Vaccine Date: Dec 30, 2008 History of Tetanus Vaccine?: No History of Pneumococcal: Yes Pneumococcal Date: Jan 09, 2005 History of Hepatitis B Vaccine: No Procedures: hip xrays showing mild OA Lspine xrays showing post op changes Consultations: ortho spine: Progress Note Patient states her back pain is relatively well controlled. She is now experiencing some right groin pain left does not so uncomfortable today. She is has been up and amatory with therapy and how this well. Vital signs are stable. On exam she is able to sit up in bed without difficulty is good strength testing. Assessment status post lumbar decompression fusion per plan at this time she is going to rehab today we will see her back in the next few weeks continue to follow her and obtain updated x-rays. <Electronically signed by Too Tomlin D.O.> Medication Reconciliation New Medications: Tramadol HCl (Tramadol HCl) 50 Mg Tab 50 MG PO Q4H PRN for Pain, #10 TAB Continued Medications: Apixaban (Eliquis) 5 Mg Tab 5 MG PO BID, TAB Carvedilol (Coreg) 12.5 Mg Tab 12.5 MG PO BID, TAB Citalopram Hydrobromide (Citalopram) 20 Mg Tab 1 TAB PO QAM Dorzolamide Hcl-Timolol Maleat (Cosopt Oph) 1 Katy Katy 1 DROP OPB BID Estrogens, Conjugated (Premarin) 14 Appln/30 Gm Cr 1 APPLN VAGRING WK Hctz/Losartan (Hyzaar 25MG/100MG) Tab 1 TAB PO QAM, #30 TAB Multivitamin (Multivitamin) Tab 1 TAB PO QAM, TAB Pantoprazole (Protonix) 40 Mg Tab 40 MG PO QDD Travoprost (Travatan Z) 0.004 % Estuardo 1 DROPS OP HS, #1 BTL 5 Refills Discharge Exam Physical Exam: General Appearance: no apparent distress Eyes: EOMI ENT: hearing grossly normal Respiratory/Chest: no respiratory distress, no accessory muscle use Neurologic/Psychiatric: 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 will still need to follow intake and follow serial BMP (for now would start q48hrs, then can reduce frequency as her levels stabilize) -mental status still waxing and waning some - although as discussed with pt and son, delirium obviously can wax and wane (sometimes for weeks) even after underlying inciting etiologies have been remedied. she does orient well with prompting and reassurance, and i suspect that being out of hospital setting will be helpful as well back pain -post op - see ortho input above, appearing stable post op status, but requires ongoing PT/OT and ortho follow up other active issues: Atrial Fibrillation - rate controlled - Continue Home Metoprolol , Eliquis HTN - BP controlled - Continue Coreg, HCTZ/Losartan (contingent on sodium levels in follow up) DVT PPx: on Eliquis Total Time Spent: Less than 30 minutes This includes examination of the patient, discharge planning, medication reconciliation, and communication with other providers. Discharge Instructions Please refer to the electronic Patient Visit Report (Discharge Instructions) for additional information. Additional Copies To Marcia Avelar
== END 2017-10-19 15:24 | DRG 947 ==
LOC: EDBD 23:22 → C.EDB 23:23 → C.3E 10-17 02:01 → ENRESERV 10-17 02:25
PROVIDERS: ADMIT Internal Medicine; ATTEND Family Medicine
DX: R41.0 Disorientation, unspecified (principal); G93.41 Metabolic encephalopathy; E87.1 Hypo-osmolality and hyponatremia; T40.2X5A Adverse effect of other opioids, initial encounter; M54.9 Dorsalgia, unspecified; I48.91 Unspecified atrial fibrillation; I10 Essential (primary) hypertension; Z88.1 Allergy status to other antibiotic agents; Z88.0 Allergy status to penicillin; G89.18 Other acute postprocedural pain

== ENCOUNTER → 2017-10-21 | Outpatient (CLI) | payer OTHER ==
[~2017-10-21] MED LIST changes: -NASONEX NASAL SPRAY; -RXC5 PO; +ULT50X PO
== END ==
LOC: C.LABCC 17:20
PROVIDERS: ATTEND Internal Medicine
DX: R44.3 Hallucinations, unspecified (principal)

== ENCOUNTER → 2017-10-24 | Outpatient (CLI) | payer OTHER ==
[2017-10-24 10:11] LABS: HEMATOCRIT 26.9 % (37-47); HEMOGLOBIN 9.2 g/dL (12.0-16.0); MEAN CORPUSCULAR HEMOGLOBIN 30.8 pg (25-34); MEAN CORPUSCULAR HGB CONC 34.2 g/dl (32-36); MEAN PLATELET VOLUME 9.6 fL (7.4-10.4); PLATELET COUNT 403 K/uL (130-400); RED CELL DISTRIBUTION WIDTH SD 45.9 fL (36.4-46.3); WHITE BLOOD COUNT 8.34 K/uL (4.8-10.8)
[2017-10-24 10:17] LABS: ALBUMIN 2.7 gm/dl (3.4-5.0); ALKALINE PHOSPHATASE 101 U/L (45-117); ALT/SGPT 39 U/L (12-78); AST/SGOT 20 U/L (15-37); BLOOD UREA NITROGEN 11 mg/dl (7-18); CALCIUM 8.1 mg/dl (8.5-10.1); CARBON DIOXIDE 32 mmol/L (21-32); GLUCOSE 104 mg/dl (70-99); POTASSIUM 2.8 mmol/L (3.5-5.1); SODIUM 125 mmol/L (136-145); TOTAL PROTEIN 5.7 gm/dl (6.4-8.2)
== END ==
LOC: C.LABCC 08:02
PROVIDERS: ATTEND Internal Medicine
DX: E87.1 Hypo-osmolality and hyponatremia (principal); D64.9 Anemia, unspecified; R41.0 Disorientation, unspecified; Z98.890 Other specified postprocedural states

== ENCOUNTER → 2017-10-25 | Outpatient (CLI) | payer OTHER ==
[~2017-10-25] MED LIST changes: +CIPR1TAB11 PO; +POTA10LI12 PO
[2017-10-25 16:00] LABS: BLOOD UREA NITROGEN 8 mg/dl (7-18); CALCIUM 8.5 mg/dl (8.5-10.1); CARBON DIOXIDE 29 mmol/L (21-32); CREATININE 0.75 mg/dl (0.60-1.20); GLUCOSE 103 mg/dl (70-99); POTASSIUM 2.8 mmol/L (3.5-5.1); SODIUM 126 mmol/L (136-145)
== END ==
LOC: C.LABCC 14:08
PROVIDERS: ATTEND Internal Medicine
DX: E87.6 Hypokalemia (principal)

== ENCOUNTER → 2017-10-25 | Outpatient (CLI) | payer OTHER ==
[2017-10-25 12:00] LABS: BLOOD UREA NITROGEN 8 mg/dl (7-18); CALCIUM 8.4 mg/dl (8.5-10.1); CARBON DIOXIDE 30 mmol/L (21-32); CREATININE 0.62 mg/dl (0.60-1.20); GLUCOSE 112 mg/dl (70-99); POTASSIUM 2.8 mmol/L (3.5-5.1); SODIUM 128 mmol/L (136-145)
== END ==
LOC: C.LABCC 09:47
PROVIDERS: ATTEND Internal Medicine
DX: E87.8 Other disorders of electrolyte and fluid balance, not elsewhere classified (principal)

== ENCOUNTER → 2017-10-27 | Outpatient (CLI) | payer OTHER ==
[2017-10-27 08:26] LABS: BLOOD UREA NITROGEN 9 mg/dl (7-18); CALCIUM 8.9 mg/dl (8.5-10.1); CARBON DIOXIDE 31 mmol/L (21-32); CREATININE 0.71 mg/dl (0.60-1.20); GLUCOSE 102 mg/dl (70-99); POTASSIUM 3.2 mmol/L (3.5-5.1); SODIUM 130 mmol/L (136-145)
== END ==
LOC: C.LABCC 08:03
PROVIDERS: ATTEND Internal Medicine
DX: E87.6 Hypokalemia (principal)

== ENCOUNTER → 2017-10-31 | Outpatient (CLI) | payer OTHER ==
[2017-10-31 16:26] LABS: BLOOD UREA NITROGEN 10 mg/dl (7-18); CARBON DIOXIDE 23 mmol/L (21-32); CREATININE 0.91 mg/dl (0.60-1.20); GLUCOSE 120 mg/dl (70-99); POTASSIUM 3.9 mmol/L (3.5-5.1); SODIUM 131 mmol/L (136-145)
== END | disposition home or self-care (01) ==
LOC: C.LABSPEC 15:23
PROVIDERS: ATTEND Physician Assistant
DX: E87.6 Hypokalemia (principal); E87.1 Hypo-osmolality and hyponatremia

== ENCOUNTER 2017-11-05 09:37 | Emergency (ER) | payer OTHER ==
[~2017-11-05] VITALS: Ht 165.1 cm; Wt 82.8 kg
[~2017-11-05 09:37] MED LIST changes: -CIPR1TAB11 PO; -POTA10LI12 PO
[2017-11-05 09:44] VITALS: TEMP 36.8; Ht 165.1 cm; Wt 82.8 kg
[2017-11-05] MEDS ORDERED: FENTANYL CITRATE INJ 50 MCG/1 ML 2 ML VIAL IV STA (10:07)
[2017-11-05] MEDS ORDERED: ONDANSETRON INJ 2 MG/ML 2 ML VIAL IV STA (10:07)
[2017-11-05] MEDS ORDERED: ACETAMINOPHEN 325 MG TAB PO STA (10:13)
--- NOTE | 2017-11-05 10:25 | EMERGENCY ROOM VISIT NOTE ---
History Report prepared by Jasper: Lorenzo Ogden Under the Supervision of: Dr. Tanisha Lin M.D. First contact with patient: 09:56 Chief Complaint: BACK PAIN Stated Complaint: BACK PAIN History of Present Illness The patient is an 87 year old female who presents to the Emergency Room with complaints of worsening weakness beginning a week ago. The patient states she had surgery on the 05 of October. She reports she was discharged from the hospital into [facility]. The patient notes she was in [facility] for a week and returned home a week ago. She states since her discharge, she does not like the smell of food and has not been able to eat much. The patient reports she also cannot get comfortable in any position because of the pain. She notes she will stand up and then develops nausea and dry heaves. The patient states she does not have medication for nausea. She reports she takes 750mg four times a day for the past several weeks. The patient notes she had severe delirium with opioids and does not want to take them. She states she tried taking OxyContin and then morphine and then tramadol. The patient reports she has taken Celexa for the past 18 years. She notes she has been drinking a lot of fluid and urinating a lot. The patient states a history of low potassium and sodium. She reports her last BM was yesterday, and it was normal. The patient notes she had blood work on Tuesday, and she did not receive the results yet. She states she is still taking Eliquis and therefore cannot take NSAIDs. The patient reports she has once in the last week. Review of EMR states the patient was evaluated in September twice and admitted both times. Dr. Tomlin performed a lumbar decompression as follows: 1. Lumbar decompression medial facetectomies foraminotomies L2-3 L3-4 L4-5 L5- S1. 2 posterior spinal fusion L2-3 L3-4 L4-5 L5-S1. 3 bilateral SI joint fusions. 4 placed a posterior segmental instrumentation L2-S1 with bilateral iliac bolts. 5 placement of local autograft in the posterior gutters. 6 placement of infuse collagen sponge combined with master graft and ostial amp in the posterior lateral gutters and bilateral SI joints. Pt was discharged from [facility] on October 19. Source of History: patient Onset: a week ago Quality: other (weakness) Timing: worsening Modifying Factors (Worsening): other (standing up) Associated Symptoms: + nausea Note: Associated symptoms: dry heaves, decreased appetite, inability to shower Review of Systems See HPI for pertinent positives & negatives. A total of 10 systems reviewed and were otherwise negative. Past Medical & Surgical Medical Problems: (1) Benign tumor of breast (2) Bleeding (3) bowel resection (4) Clostridium difficile infection (5) Depression (6) Glaucoma (7) History of - hysterectomy (8) left knee replacement (9) Lumbar stenosis with neurogenic claudication (10) Muscular headache (11) Postoperative back pain (12) varicose vein stripping Family History FH: cancer Social History Smoking Status: Former Smoker Alcohol Use: none Drug Use: none Marital Status: Housing Status: lives with family Occupation Status: retired Current/Historical Medications Scheduled Apixaban (Eliquis), 5 MG PO BID Carvedilol (Coreg), 12.5 MG PO BID Ciprofloxacin Tab (Cipro), 250 MG PO BID Citalopram Hydrobromide (Citalopram), 20 MG PO QAM Dorzolamide Hcl-Timolol Maleat (Cosopt Oph), 1 DROP OPB BID Hctz/Losartan (Hyzaar 25MG/100MG), 1 TAB PO QAM Pantoprazole (Protonix), 40 MG PO QDD Potassium Chloride 40 Meq/15 Ml (Potassium Chloride 40 Meq/15 Ml), 10 MEQ PO DAILY Travoprost (Travatan Z), 1 DROPS OP HS Allergies Coded Allergies: Amoxicillin (Verified Allergy, Unknown, ITCHING, 10/17/17) Clindamycin (Verified Allergy, Unknown, ITCHING, 10/17/17) Penicillins (Verified Allergy, Unknown, ITCHING, 10/17/17) Uncoded Allergies: opioids (Adverse Reaction, Unknown, hallucinations, 11/05/17) Physical Exam Vital Signs Date Time Temp Pulse Resp B/P (MAP) Pulse Ox O2 Delivery O2 Flow Rate FiO2 11/05/17 15:20 80 18 139/102 99 11/05/17 13:55 71 16 170/87 99 Room Air 11/05/17 13:09 65 20 168/86 100 Room Air 11/05/17 12:44 68 11/05/17 10:47 65 14 165/91 99 Room Air 11/05/17 09:44 36.8 96 14 174/108 97 Room Air Physical Exam Vital signs reviewed. General: Well-appearing 87 year old female, in no significant distress. HEENT: No scleral icterus, PERRLA, neck supple. Atraumatic. Cardiovascular: Regular rate and rhythm, no extra sounds. Pulmonary: Clear to auscultation bilaterally, normal work of breathing. Abdomen: Soft, nontender, nondistended, positive bowel sounds. Musculoskeletal: No peripheral edema. Well healed incisional scar to the lower lumbar spine. Some pain with straight leg raises bilaterally with equal strength. Neurologic: Patient awake alert and oriented x 3, full strength in all 4 extremities. Cranial nerves 2 through 12 grossly intact. Skin: Warm, dry, no rash Medical Decision & Procedures ER Provider Diagnostic Interpretation: X-ray results as stated below per interpretation by me and the radiologist: LUMBAR SPINE 5 VIEWS CLINICAL HISTORY: Low back pain. FINDINGS: 5 views of the lumbar spine are compared to study dated 10/18/2017 and 04/20/2017. The skeletal structures are osteopenic. There is no radiographic evidence of acute fracture or malalignment involving the lumbar spine. There is a mild compression fracture of L2, with increasing collapse of the L2 vertebral body as compared to 10/18/2017. Vertebral body height is otherwise maintained throughout the lumbar spine. Mild retrolisthesis is noted at L1-L2. Alignment is otherwise preserved. There are postoperative changes from extensive lumbosacral spinal fusion. There has been laminectomy and posterior fusion from L2-S1. Interpedicular screws are present at all levels. The orthopedic hardware appears intact. Iliac bolts are in place. Small anterior osteophytes are seen throughout. The transverse processes are grossly intact. Interposition bone graft is noted. Multilevel degenerative disc space narrowing is observed . The visualized bony pelvis appears intact. Sclerotic change is noted in the sacroiliac joints. There is advanced atherosclerotic calcification of the abdominal aorta. No bowel obstruction is seen. Suture material is noted in the left mid abdomen. IMPRESSION: 1. There is increasing collapse of a mild subacute L2 compression fracture as compared to 10/18/2017. No retropulsed fragments are identified. 2. No additional findings are concerning for acute fracture. 3. Degenerative and extensive postoperative changes as above. Electronically signed by: Luis Pearson M.D. 11/05/2017 11:30 AM Dictated Date/Time: 11/05/2017 11:24 AM Laboratory Results 11/05/17 10:25 Red Blood Count 4.07, Mean Corpuscular Volume 89.4, Mean Corpuscular Hemoglobin 30.7, Mean Corpuscular Hemoglobin Concent 34.3, Mean Platelet Volume 9.7, Neutrophils (%) (Auto) 77.3, Lymphocytes (%) (Auto) 15.3, Monocytes (%) (Auto) 6.6, Eosinophils (%) (Auto) 0.1, Basophils (%) (Auto) 0.4, Neutrophils # (Auto) 5.49, Lymphocytes # (Auto) 1.09, Monocytes # (Auto) 0.47, Eosinophils # (Auto) 0.01, Basophils # (Auto) 0.03 11/05/17 10:25 Test 11/05/17 10:25 11/05/17 13:05 White Blood Count 7.11 K/uL (4.8-10.8) Red Blood Count 4.07 M/uL (4.2-5.4) Hemoglobin 12.5 g/dL (12.0-16.0) Hematocrit 36.4 % (37-47) Mean Corpuscular Volume 89.4 fL (80-100) Mean Corpuscular Hemoglobin 30.7 pg (25-34) Mean Corpuscular Hemoglobin Concent 34.3 g/dl (32-36) Platelet Count 362 K/uL (130-400) Mean Platelet Volume 9.7 fL (7.4-10.4) Neutrophils (%) (Auto) 77.3 % Lymphocytes (%) (Auto) 15.3 % Monocytes (%) (Auto) 6.6 % Eosinophils (%) (Auto) 0.1 % Basophils (%) (Auto) 0.4 % Neutrophils # (Auto) 5.49 K/uL (1.4-6.5) Lymphocytes # (Auto) 1.09 K/uL (1.2-3.4) Monocytes # (Auto) 0.47 K/uL (0.11-0.59) Eosinophils # (Auto) 0.01 K/uL (0-0.5) Basophils # (Auto) 0.03 K/uL (0-0.2) RDW Standard Deviation 46.4 fL (36.4-46.3) RDW Coefficient of Variation 14.0 % (11.5-14.5) Immature Granulocyte % (Auto) 0.3 % Immature Granulocyte # (Auto) 0.02 K/uL (0.00-0.02) Anion Gap 11.0 mmol/L (3-11) Est Creatinine Clear Calc Drug Dose 46.5 ml/min Estimated GFR () 64.1 Estimated GFR (Non- 55.3 BUN/Creatinine Ratio 14.3 (10-20) Calcium Level 9.2 mg/dl (8.5-10.1) Magnesium Level 2.0 mg/dl (1.8-2.4) Total Bilirubin 1.1 mg/dl (0.2-1) Direct Bilirubin 0.3 mg/dl (0-0.2) Aspartate Amino Transf (AST/SGOT) 21 U/L (15-37) Alanine Aminotransferase (ALT/SGPT) 32 U/L (12-78) Alkaline Phosphatase 177 U/L (45-117) Total Creatine Kinase 39 U/L (26-192) Total Protein 7.1 gm/dl (6.4-8.2) Albumin 3.6 gm/dl (3.4-5.0) Thyroid Stimulating Hormone (TSH) 1.830 uIu/ml (0.300-4.500) Urine Color YELLOW Urine Appearance CLOUDY (CLEAR) Urine pH 7.5 (4.5-7.5) Urine Specific [place] 1.011 (1.000-1.030) Urine Protein NEG (NEG) Urine Glucose (UA) NEG (NEG) Urine Ketones TRACE (NEG) Urine Occult Blood NEG (NEG) Urine Nitrite POS (NEG) Urine Bilirubin NEG (NEG) Urine Urobilinogen NEG (NEG) Urine Leukocyte Esterase MODERATE (NEG) Urine WBC (Auto) >30 /hpf (0-5) Urine RBC (Auto) 0-4 /hpf (0-4) Urine Hyaline Casts (Auto) 1-5 /lpf (0-5) Urine Epithelial Cells (Auto) >30 /lpf (0-5) Urine Bacteria (Auto) 4+ (NEG) Laboratory results per my review. Medications Administered Medications (Trade) Dose Ordered Sig/Ajit Route Start Time Stop Time Status Last Admin Dose Admin Ondansetron HCl (Zofran Inj) 4 mg NOW STAT IV 11/05/17 10:07 11/05/17 10:10 DC 11/05/17 10:36 4 MG Acetaminophen (Tylenol Tab) 650 mg NOW STAT PO 11/05/17 10:13 11/05/17 10:14 DC 11/05/17 10:37 650 MG Sodium Chloride 1,000 ml @ 125 mls/hr Q8H STAT IV 11/05/17 10:49 11/05/17 15:52 DC 11/05/17 11:16 125 MLS/HR Ciprofloxacin (Ciprofloxacin Tab) 250 mg NOW STAT PO 11/05/17 14:14 11/05/17 14:17 DC 11/05/17 15:00 250 MG Potassium Chloride (Barbie Ciel Elix) 20 meq NOW STAT PO 11/05/17 14:14 11/05/17 14:17 DC 11/05/17 14:59 20 MEQ ECG Per My Interpretation Indication: weakness Rate (beats per minute): 65 Rhythm: atrial fibrillation Findings: nonspecific-ST abn, no acute ischemic change, other (QTc of 432) ED Course 1006: Past medical records reviewed. The patient was evaluated in room B06. A complete history and physical examination was performed. 1412: Upon reevaluation, the patient appeared to have improvement of her symptoms. She will be given oral antibiotics for her UTI. I discussed findings with her and her son. They verbalized agreement of the treatment plan. They patient was discharged home. Medical Decision Differential diagnosis: Etiologies such as metabolic, infection, hypo/hyperglycemia, electrolyte abnormalities, cardiac sources, intracerebral event, toxicologic, neurologic, as well as others were entertained. This patient was evaluated and appeared to be in no significant distress. Patient does seem to be somewhat unkempt however given her description of increased weakness, she feels it is more difficult to care for herself. She does live with her son who she states is not a "healthcare carmen" but does have a second son who will be coming home later today. Lumbar spine x-rays reveal no evidence of acute abnormality. Patient was treated with IV Zofran and Tylenol for her pain. Patient's evaluation is significant for UTI. Patient was given Cipro 250 mg p.o. Case management was consulted and discussed the living situation with both the patient and both of her sons. They feel it is safe for the patient to return home. The patient will be prescribed Cipro 250 mg p.o. twice daily for 7 days. She will follow-up with her PCP and Dr. Tomlin within the next several weeks and return to the ED for worsening of symptoms or any medical concerns. Medication Reconcilliation Current Medication List: was personally reviewed by me Blood Pressure Screening Patient's blood pressure: Elevated blood pressure Blood pressure disposition: Referred to PCP Impression Primary Impression: Lumbar back pain Additional Impression: UTI (urinary tract infection) Scribe Attestation The scribe's documentation has been prepared under my direction and personally reviewed by me in its entirety. I confirm that the note above accurately reflects all work, treatment, procedures, and medical decision making performed by me. Departure Information Dispostion Home / Self-Care Prescriptions Ciprofloxacin Tab (Cipro) 250 Mg Tab 250 MG PO BID for 7 Days, #14 TAB Prov: Tanisha Lin M.D. 11/05/17 Potassium Chloride 40 Meq/15 Ml (POTASSIUM CHLORIDE 40 MEQ/15 ML) 20 % Liq 10 MEQ PO DAILY for 30 Days, #100 ML Prov: Tanisha Lin M.D. 11/05/17 Referrals Too Tomlin D.O. Smith, Shoaib Cody, PA-C Forms HOME CARE DOCUMENTATION FORM, IMPORTANT VISIT INFORMATION Patient Instructions [facility] Additional Instructions Diagnosis: Generalized weakness, UTI, lumbar back pain Potassium chloride elixir 10 mEq daily. Please continue Tylenol 650 mg every 6 hours as needed for pain. Cipro 250 mg twice daily for 5 days. Please drink plenty of clear fluids and eat frequent and small meals. You may supplement with boost milkshakes. Follow-up with your physician for reevaluation this week. Follow-up with your spine surgeon for reevaluation this week. Return to the emergency department for worsening of symptoms or any medical concerns. Problem Qualifiers
[2017-11-05 10:39] LABS: BASO % 0.4 %; BASO ABS # 0.03 K/uL (0-0.2); EOS % 0.1 %; EOS ABS # 0.01 K/uL (0-0.5); HEMATOCRIT 36.4 % (37-47); HEMOGLOBIN 12.5 g/dL (12.0-16.0); IG# 0.02 K/uL (0.00-0.02); LYMPH % 15.3 %; LYMPH ABS # 1.09 K/uL (1.2-3.4); MEAN CELL VOLUME 89.4 fL (80-100); MEAN CORPUSCULAR HEMOGLOBIN 30.7 pg (25-34); MEAN CORPUSCULAR HGB CONC 34.3 g/dl (32-36); MEAN PLATELET VOLUME 9.7 fL (7.4-10.4); MONO % 6.6 %; MONO ABS # 0.47 K/uL (0.11-0.59); NEUT % 77.3 %; NEUT ABS # 5.49 K/uL (1.4-6.5); PLATELET COUNT 362 K/uL (130-400); RED CELL DISTRIBUTION WIDTH SD 46.4 fL (36.4-46.3); WHITE BLOOD COUNT 7.11 K/uL (4.8-10.8)
[2017-11-05] MEDS ORDERED: SODIUM CHLORIDE 0.9% 1000ML 1,000 ML IV STA (10:49)
[2017-11-05 11:06] LABS: ALBUMIN 3.6 gm/dl (3.4-5.0); CALCIUM 9.2 mg/dl (8.5-10.1); CREATININE 0.94 mg/dl (0.60-1.20); POTASSIUM 3.5 mmol/L (3.5-5.1); TOTAL PROTEIN 7.1 gm/dl (6.4-8.2)
--- NOTE | 2017-11-05 11:31 | DIAGNOSTIC IMAGING REPORT ---
LUMBAR SPINE 5 VIEWS CLINICAL HISTORY: Low back pain. FINDINGS: 5 views of the lumbar spine are compared to study dated 10/18/2017 and 04/20/2017. The skeletal structures are osteopenic. There is no radiographic evidence of acute fracture or malalignment involving the lumbar spine. There is a mild compression fracture of L2, with increasing collapse of the L2 vertebral body as compared to 10/18/2017. Vertebral body height is otherwise maintained throughout the lumbar spine. Mild retrolisthesis is noted at L1-L2. Alignment is otherwise preserved. There are postoperative changes from extensive lumbosacral spinal fusion. There has been laminectomy and posterior fusion from L2-S1. Interpedicular screws are present at all levels. The orthopedic hardware appears intact. Iliac bolts are in place. Small anterior osteophytes are seen throughout. The transverse processes are grossly intact. Interposition bone graft is noted. Multilevel degenerative disc space narrowing is observed . The visualized bony pelvis appears intact. Sclerotic change is noted in the sacroiliac joints. There is advanced atherosclerotic calcification of the abdominal aorta. No bowel obstruction is seen. Suture material is noted in the left mid abdomen. IMPRESSION: 1. There is increasing collapse of a mild subacute L2 compression fracture as compared to 10/18/2017. No retropulsed fragments are identified. 2. No additional findings are concerning for acute fracture. 3. Degenerative and extensive postoperative changes as above. Electronically signed by: Luis Pearson M.D. 11/05/2017 11:30 AM Dictated Date/Time: 11/05/2017 11:24 AM
[2017-11-05] MEDS ORDERED: CIPROFLOXACIN 400MG / 200ML D5W IV STA (14:03)
[2017-11-05] MEDS ORDERED: POTASSIUM CHLORIDE 20 MEQ/15 ML UDC PO STA (14:14)
[2017-11-05] MEDS ORDERED: CIPROFLOXACIN 250 MG TAB PO STA (14:14)
[2017-11-05] MEDS ORDERED: POTA10LI12 PO (14:30)
[2017-11-05] MEDS ORDERED: CIPR1TAB11 PO (15:06)
[2017-11-05 15:20] VITALS: BP 139/102; PULSE 80; O2SAT 99
--- NOTE | 2017-11-07 12:15 | Pharmacy Progress Note ---
ED Pharmacist Culture FollowUp Date of Service: Nov 07, 2017. Patient was sent home with a prescription for ciprofloxacin 250 mg BID x 7 days , which should cover the E. coli growing from the patient's urine culture.
== END 2017-11-05 15:21 | disposition home or self-care (01) ==
LOC: EDBD 09:37 → C.EDB 09:38
DX: M54.5 Low back pain (principal); N39.0 Urinary tract infection, site not specified; H40.9 Unspecified glaucoma; Z96.652 Presence of left artificial knee joint; M99.73 Connective tissue and disc stenosis of intervertebral foramina of lumbar region; Z87.891 Personal history of nicotine dependence; Z88.1 Allergy status to other antibiotic agents; Z88.8 Allergy status to other drugs, medicaments and biological substances; Z88.0 Allergy status to penicillin

== ENCOUNTER 2017-11-09 13:08 | Emergency (ER) | payer OTHER ==
[~2017-11-09] VITALS: Ht 167.6 cm; Wt 80.0 kg
[~2017-11-09 13:08] MED LIST changes: +CIPR1TAB11 PO; -MULT-506 PO; +POTA10LI12 PO; -PRMVC VAGRING; -ULT50X PO
[2017-11-09 13:11] VITALS: TEMP 36; Ht 167.6 cm; Wt 80.0 kg
[2017-11-09 14:17] LABS: BASO % 0.2 %; BASO ABS # 0.02 K/uL (0-0.2); EOS % 0.2 %; EOS ABS # 0.02 K/uL (0-0.5); HEMATOCRIT 35.5 % (37-47); HEMOGLOBIN 11.9 g/dL (12.0-16.0); IG# 0.03 K/uL (0.00-0.02); LYMPH % 14.2 %; LYMPH ABS # 1.15 K/uL (1.2-3.4); MEAN CORPUSCULAR HEMOGLOBIN 30.5 pg (25-34); MEAN CORPUSCULAR HGB CONC 33.5 g/dl (32-36); MEAN PLATELET VOLUME 10.4 fL (7.4-10.4); MONO % 4.9 %; NEUT % 80.1 %; NEUT ABS # 6.47 K/uL (1.4-6.5); PLATELET COUNT 309 K/uL (130-400); RED CELL DISTRIBUTION WIDTH CV 14.4 % (11.5-14.5); RED CELL DISTRIBUTION WIDTH SD 48.2 fL (36.4-46.3); WHITE BLOOD COUNT 8.09 K/uL (4.8-10.8)
--- NOTE | 2017-11-09 14:24 | DIAGNOSTIC IMAGING REPORT ---
CHEST ONE VIEW PORTABLE CLINICAL HISTORY: delirium mental status change COMPARISON STUDY: 09/06/2017 FINDINGS: The bones soft tissues and hemidiaphragms are normal. The cardiomediastinal silhouette is normal. The lungs are clear. The pulmonary vasculature is normal. IMPRESSION: Negative chest. The above report was generated using voice recognition software. It may contain grammatical, syntax or spelling errors. Electronically signed by: Jerson Chavez M.D. 11/09/2017 2:22 PM Dictated Date/Time: 11/09/2017 2:22 PM
[2017-11-09 14:37] LABS: ALBUMIN 3.3 gm/dl (3.4-5.0); CALCIUM 9.5 mg/dl (8.5-10.1); CREATININE 0.93 mg/dl (0.60-1.20); POTASSIUM 4.3 mmol/L (3.5-5.1); TOTAL PROTEIN 6.8 gm/dl (6.4-8.2)
--- NOTE | 2017-11-09 14:42 | EMERGENCY ROOM VISIT NOTE ---
History First contact with patient: 13:44 (Jerson Holt M.D.) First contact with patient: 13:13 (Kobe Osorio M.D.) Chief Complaint: ILLNESS Stated Complaint: BACK PAIN,UTI,DELIRIUM,WEAKNESS,DIZZY History of Present Illness The patient is a 87 year old female with a PMHx of Afib, HTN, HLD, recent UTI and put on Cipro 5 days prior who presents to the Emergency Room with complaints of delirium starting this morning that has resolved, and persistent shakiness and decreased appetite. Pt is accompanied by her son who supplements the HPI. Per patient she has been keeping up her fluid intake, it's just a decreased appetite. Pt's son states that his morning there was a period of 1-2 hours after waking up where the patient was talking nonsensically. Pt sons attributes this to the Ciprofloxacin. This is Day #5 of Cipro treatment. She has tolerated the previous doses of Cipro well. Pt states that a similar thing happened on the 5th of Oxycodone and Tramadol treatment. She is not longer on Oxycodone or Tramadol. Patient was recently in office yesterday by Dr. Tomlin for worsening back pain after a lumbar Fusion surgery done the 05 of October. Per son, the patient was told there is a concern of a loose body causing nerve pain and a CT Lumbar spine was ordered to be done today. Pt denies any diarrhea or sick contacts. ROS: constant back pain since surgery is unchanged, it radiates to behind both thighs. Source of History: patient, family (son) History Limited By: other (none) Onset: AM Symptom Intensity: moderate Timing: resolved (resolving deliriu, constant chills) (Jerson Holt M.D.) Review of Systems See HPI for pertinent positives and negatives. A total of ten systems were reviewed and were otherwise negative. Constitutional: + chills, No fever ENT: No hearing loss Respiratory: No cough, No sputum, No wheezing, No shortness of breath, No dyspnea on exertion Cardiovascular: No chest pain Abdomen: No pain, No nausea, No vomiting, No diarrhea, No constipation Musculoskeletal: No joint pain Genitourinary - Female: No dysuria, No urinary frequency, No urinary urgency , No urinary incontinence Neurologic: No memory loss, No numbness/tingling Endocrine: + fatigue Integumentary: No rash (Jerson Holt M.D.) Past Medical/Surgical History Medical Problems: (1) Benign tumor of breast (2) Bleeding (3) bowel resection (4) Clostridium difficile infection (5) Depression (6) Glaucoma (7) History of - hysterectomy (8) left knee replacement (9) Lumbar stenosis with neurogenic claudication (10) Muscular headache (11) Postoperative back pain (12) varicose vein stripping (Kobe Osorio M.D.) Family History FH: cancer (Jerson Holt M.D.) FH: cancer (Kobe Osorio M.D.) Social History Smoking Status: Never Smoker Alcohol Use: none Drug Use: none Marital Status: Housing Status: lives with family Occupation Status: retired (Jerson Holt M.D.) Current/Historical Medications Scheduled Apixaban (Eliquis), 5 MG PO BID Carvedilol (Coreg), 12.5 MG PO BID Ciprofloxacin Tab (Cipro), 250 MG PO BID Citalopram Hydrobromide (Citalopram), 20 MG PO QAM Dorzolamide Hcl-Timolol Maleat (Cosopt Oph), 1 DROP OPB BID Hctz/Losartan (Hyzaar 25MG/100MG), 1 TAB PO QAM Pantoprazole (Protonix), 40 MG PO QDD Potassium Chloride 40 Meq/15 Ml (Potassium Chloride 40 Meq/15 Ml), 10 MEQ PO DAILY Travoprost (Travatan Z), 1 DROPS OP HS Physical Exam Vital Signs Date Time Temp Pulse Resp B/P (MAP) Pulse Ox O2 Delivery O2 Flow Rate FiO2 11/09/17 16:28 67 16 156/77 100 11/09/17 14:35 65 141/76 99 Room Air 11/09/17 13:11 36.0 85 20 122/65 97 Room Air (Kobe Osorio M.D.) Physical Exam Gen: No acute distress. HEENT: Head - normocephalic and atraumatic. Pupils are equal, round, and reactive to light. Extraocular eye muscles are intact and sclera are anicteric. Ears - bilaterally patent canals with noninjected tympanic membranes and no evidence of hemotympanum. Nose - moist nasal mucosa without discharge. Mouth - moist buccal mucosa. Oropharynx is nonerythematous and there is no tonsillar exudate or edema noted. Neck: Supple; no JVD, nuchal rigidity, cervical lymphadenopathy, or auscultated bruits. Heart: irregular irregular. There is a normal S1 and S2 with no murmurs, clicks , or gallops appreciated. Lungs: Clear to auscultation bilaterally with no wheezes, rales, or rhonchi. Abdomen: Soft, completely nontender, nondistended, with good bowel sounds. There are no palpable pulsatile masses or hepatosplenomegaly. There is no guarding, rigidity, or rebound noted. Extremities: No evidence of cyanosis, clubbing, or edema. There are easily palpable peripheral pulses. BACK: Well healed vertical approx 10cm midline incision, no incision site tenderness, masses or fluid collections appreciated. Neuro:The patient is awake and alert, oriented to day, time, and place. Muscle strength is 5/5 in all 4 extremities. 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 There are no cerebellar signs. Sensation over the lower extremities WNL and symmetrical. (Jerson Holt M.D.) Medical Decision & Procedures ER Provider Diagnostic Interpretation: Radiology results as stated below per my review and radiologist interpretation: LUMBAR SPINE WITHOUT CT DOSE: 751.55 mGy.cm HISTORY: Pain Intractable Back Pain TECHNIQUE: Multiaxial CT images of the lumbar spine were performed and reformatted in the sagittal and coronal plane without the use of contrast. A dose lowering technique was utilized adhering to the principles of ALARA. COMPARISON: 11/05/2017 FINDINGS: Unchanged collapse of the superior endplate of L2. Interpedicular screws are identified throughout the lumbar spine from L2 through S1 with orthogonal bulge traversing the sacroiliac regions. There is a grade 2 retrolisthesis L1 on L2. This is similar as compared to the prior study with a maximum posterior displacement of 9 mm. Deterioration of the superior endplate of L2 is similar as compared to the prior study. The interpedicular screws do not appear to traverse a structurally sound component of the superior endplate. IMPRESSION: 1. Findings consistent with laminectomy and fusion throughout the entire lumbar spine. 2. Stable deterioration of the superior endplate of L2 with the interpedicular screws considered extrinsic to significant structurally sound bone. 3. Grade 2 retrolisthesis L1 on L2 with a maximum displacement 9 mm. The above report was generated using voice recognition software. It may contain grammatical, syntax or spelling errors. Electronically signed by: Jerson Chavez M.D. 11/09/2017 2:50 PM Dictated Date/Time: 11/09/2017 2:38 PM CHEST ONE VIEW PORTABLE CLINICAL HISTORY: delirium mental status change COMPARISON STUDY: 09/06/2017 FINDINGS: The bones soft tissues and hemidiaphragms are normal. The cardiomediastinal silhouette is normal. The lungs are clear. The pulmonary vasculature is normal. IMPRESSION: Negative chest. The above report was generated using voice recognition software. It may contain grammatical, syntax or spelling errors. Electronically signed by: Jerson Chavez M.D. 11/09/2017 2:22 PM Dictated Date/Time: 11/09/2017 2:22 PM (Kobe Osorio M.D.) Laboratory Results 11/09/17 14:00 Red Blood Count 3.90, Mean Corpuscular Volume 91.0, Mean Corpuscular Hemoglobin 30.5, Mean Corpuscular Hemoglobin Concent 33.5, Mean Platelet Volume 10.4, Neutrophils (%) (Auto) 80.1, Lymphocytes (%) (Auto) 14.2, Monocytes (%) (Auto) 4.9, Eosinophils (%) (Auto) 0.2, Basophils (%) (Auto) 0.2, Neutrophils # (Auto) 6.47, Lymphocytes # (Auto) 1.15, Monocytes # (Auto) 0.40, Eosinophils # (Auto) 0.02, Basophils # (Auto) 0.02 11/09/17 14:00 Test 11/09/17 14:00 11/09/17 15:15 White Blood Count 8.09 K/uL (4.8-10.8) Red Blood Count 3.90 M/uL (4.2-5.4) Hemoglobin 11.9 g/dL (12.0-16.0) Hematocrit 35.5 % (37-47) Mean Corpuscular Volume 91.0 fL (80-100) Mean Corpuscular Hemoglobin 30.5 pg (25-34) Mean Corpuscular Hemoglobin Concent 33.5 g/dl (32-36) Platelet Count 309 K/uL (130-400) Mean Platelet Volume 10.4 fL (7.4-10.4) Neutrophils (%) (Auto) 80.1 % Lymphocytes (%) (Auto) 14.2 % Monocytes (%) (Auto) 4.9 % Eosinophils (%) (Auto) 0.2 % Basophils (%) (Auto) 0.2 % Neutrophils # (Auto) 6.47 K/uL (1.4-6.5) Lymphocytes # (Auto) 1.15 K/uL (1.2-3.4) Monocytes # (Auto) 0.40 K/uL (0.11-0.59) Eosinophils # (Auto) 0.02 K/uL (0-0.5) Basophils # (Auto) 0.02 K/uL (0-0.2) RDW Standard Deviation 48.2 fL (36.4-46.3) RDW Coefficient of Variation 14.4 % (11.5-14.5) Immature Granulocyte % (Auto) 0.4 % Immature Granulocyte # (Auto) 0.03 K/uL (0.00-0.02) Anion Gap 9.0 mmol/L (3-11) Est Creatinine Clear Calc Drug Dose 47.2 ml/min Estimated GFR () 65.0 Estimated GFR (Non- 56.0 BUN/Creatinine Ratio 18.7 (10-20) Calcium Level 9.5 mg/dl (8.5-10.1) Total Bilirubin 0.8 mg/dl (0.2-1) Aspartate Amino Transf (AST/SGOT) 21 U/L (15-37) Alanine Aminotransferase (ALT/SGPT) 30 U/L (12-78) Alkaline Phosphatase 161 U/L (45-117) Total Protein 6.8 gm/dl (6.4-8.2) Albumin 3.3 gm/dl (3.4-5.0) Globulin 3.5 gm/dl (2.5-4.0) Albumin/Globulin Ratio 0.9 (0.9-2) Urine Color YELLOW Urine Appearance CLEAR (CLEAR) Urine pH 7.5 (4.5-7.5) Urine Specific [place] 1.014 (1.000-1.030) Urine Protein NEG (NEG) Urine Glucose (UA) NEG (NEG) Urine Ketones NEG (NEG) Urine Occult Blood NEG (NEG) Urine Nitrite NEG (NEG) Urine Bilirubin NEG (NEG) Urine Urobilinogen NEG (NEG) Urine Leukocyte Esterase NEG (NEG) (Kobe Osorio M.D.) Procedure CHEST ONE VIEW PORTABLE CLINICAL HISTORY: delirium mental status change COMPARISON STUDY: 09/06/2017 FINDINGS: The bones soft tissues and hemidiaphragms are normal. The cardiomediastinal silhouette is normal. The lungs are clear. The pulmonary vasculature is normal. IMPRESSION: Negative chest. (Jerson Holt M.D.) No procedures were performed the CXR should be in the radiology section. (Kobe Osorio M.D.) ECG Per My Interpretation Indication: altered mental status Rate (beats per minute): 65 Rhythm: atrial fibrillation Findings: no acute ischemic change Change: no significant change Change: Atrial fibrillation possible Inferior infarct , age undetermined Abnormal ECG When compared with ECG of 05-NOV-2017 10:26, Nonspecific T wave abnormality no longer evident in Inferior leads Nonspecific T wave abnormality no longer evident in Anterior leads Confirmed by Cong Coon ([id number]) on 11/09/2017 3:44:18 PM (Jerson Holt M.D.) Medical Decision The patient's care and disposition was discussed with Dr. Osorio, Attending ED Physician. This is a 87F with chills, delirium and decreased appetite in the setting of chronic back pain. Differential diagnosis include viral syndrome, otitis, pharyngitis, pneumonia, influenza, meningitis, urinary tract infection, sepsis, bacteremia, as well as others were entertained. Triage Nursing notes were reviewed. ED Course included an extensive history and physical exam, labs, X-ray and CT lumbar spine w/o contrast. 1:45- Pt seen and examined at bedside and case discussed with Dr. Osorio. 3:00 - Labs reviewed with attending. CT findings showed no acute pathology per radiologist report. Attempted to reach Dr. Tomlin's office and placed on hold > 10min. Pt was given a 1L NSS fluid bolus. 3:30 - Labs and imaging reviewed with son and patient - advised to follow up with Dr. Tomlin's office. Regarding pain medication pt's option are limited - Tylenol is probably the best option at this point. We also had a discussion regarding CBD - patient is willing to try it as an adjunct treatment. UA is negative - I also advised discontinuing the Cipro after 4.5 days of treatment. The pt was informed about the findings as listed above. All questions were answered. Return instructions were outlined and the patient was discharged in good condition. The patient was referred to PCP for recheck of the current condition. (Jerson Holt M.D.) Head Trauma GCS Score: 15 (Jerson Holt M.D.) Impression Primary Impression: Back pain Additional Impressions: Chills (without fever) Anemia Departure Information Dispostion Home / Self-Care Condition GOOD Referrals Shoaib Senior PA-C (PCP) Patient Instructions My [facility] Resident Involvement: Resident Care Provided Care Provided: Adult ED (Jerson Holt M.D.) Problem Qualifiers Primary Impression: Back pain Back pain location: low back pain Chronicity: chronic Back pain laterality : midline Sciatica presence: unspecified whether sciatica present Qualified Codes: M54.5 - Low back pain; G89.29 - Other chronic pain Additional Impressions: Anemia Anemia type: unspecified type Qualified Codes: D64.9 - Anemia, unspecified
[2017-11-09] MEDS ORDERED: SODIUM CHLORIDE 0.9% 1000ML 1,000 ML IV SCH (14:45)
--- NOTE | 2017-11-09 14:51 | DIAGNOSTIC IMAGING REPORT ---
LUMBAR SPINE WITHOUT CT DOSE: 751.55 mGy.cm HISTORY: Pain Intractable Back Pain TECHNIQUE: Multiaxial CT images of the lumbar spine were performed and reformatted in the sagittal and coronal plane without the use of contrast. A dose lowering technique was utilized adhering to the principles of ALARA. COMPARISON: 11/05/2017 FINDINGS: Unchanged collapse of the superior endplate of L2. Interpedicular screws are identified throughout the lumbar spine from L2 through S1 with orthogonal bulge traversing the sacroiliac regions. There is a grade 2 retrolisthesis L1 on L2. This is similar as compared to the prior study with a maximum posterior displacement of 9 mm. Deterioration of the superior endplate of L2 is similar as compared to the prior study. The interpedicular screws do not appear to traverse a structurally sound component of the superior endplate. IMPRESSION: 1. Findings consistent with laminectomy and fusion throughout the entire lumbar spine. 2. Stable deterioration of the superior endplate of L2 with the interpedicular screws considered extrinsic to significant structurally sound bone. 3. Grade 2 retrolisthesis L1 on L2 with a maximum displacement 9 mm. The above report was generated using voice recognition software. It may contain grammatical, syntax or spelling errors. Electronically signed by: Jerson Chavez M.D. 11/09/2017 2:50 PM Dictated Date/Time: 11/09/2017 2:38 PM
--- NOTE | 2017-11-09 14:53 | EMERGENCY ROOM VISIT NOTE ---
ED Visit Note First contact with patient: 13:13 The patient was seen and examined with resident physician Jerson Holt MD. I agree with the history, physical and findings. Please see the note for disposition and details.
[2017-11-09 16:28] VITALS: BP 156/77; PULSE 67; O2SAT 100
== END 2017-11-09 16:29 | disposition home or self-care (01) ==
LOC: C.EDB 13:09 → C.EDC 16:29
DX: M54.5 Low back pain (principal); G89.29 Other chronic pain; R68.83 Chills (without fever); D64.9 Anemia, unspecified; Z79.01 Long term (current) use of anticoagulants; F32.9 Major depressive disorder, single episode, unspecified; H40.9 Unspecified glaucoma; Z98.890 Other specified postprocedural states

== ENCOUNTER 2017-11-13 11:21 | Inpatient (IN) | payer OTHER ==
[~2017-11-13] VITALS: Ht 165.1 cm; Wt 82.7 kg
[2017-11-13 13:25] VITALS: BP 95/69; PULSE 67; TEMP 36.4; O2SAT 100
[2017-11-13 13:54] VITALS: Ht 165.1 cm; Wt 82.7 kg
[2017-11-13] MEDS ORDERED: NURSING VERBAL MED ORDER ONE ×3 (14:00→16:30)
[2017-11-13] MEDS ORDERED: ACETAMINOPHEN IV 1000MG/100ML IV PRN (14:15)
[2017-11-13] MEDS: SODIUM CHLORIDE 0.9% 1000ML 1,000 ML IV SCH (14:23)
[2017-11-13 14:48] VITALS: BP 117/75; PULSE 64; TEMP 36.4; O2SAT 97
[2017-11-13 16:10] VITALS: O2SAT 97
[2017-11-13 16:18] VITALS: BP_SYST 71; BP_SYST 86; BP_DIAS 48; BP_DIAS 54
[2017-11-13 16:19] LABS: BASO % 0.3 %; BASO ABS # 0.02 K/uL (0-0.2); EOS % 0.5 %; EOS ABS # 0.03 K/uL (0-0.5); HEMATOCRIT 35.7 % (37-47); HEMOGLOBIN 12.2 g/dL (12.0-16.0); IG# 0.02 K/uL (0.00-0.02); LYMPH % 16.2 %; LYMPH ABS # 1.02 K/uL (1.2-3.4); MEAN CELL VOLUME 91.1 fL (80-100); MEAN CORPUSCULAR HEMOGLOBIN 31.1 pg (25-34); MEAN CORPUSCULAR HGB CONC 34.2 g/dl (32-36); MEAN PLATELET VOLUME 10.1 fL (7.4-10.4); MONO % 8.8 %; MONO ABS # 0.55 K/uL (0.11-0.59); NEUT % 73.9 %; NEUT ABS # 4.64 K/uL (1.4-6.5); PLATELET COUNT 312 K/uL (130-400); RED CELL DISTRIBUTION WIDTH CV 14.3 % (11.5-14.5); RED CELL DISTRIBUTION WIDTH SD 47.2 fL (36.4-46.3); WHITE BLOOD COUNT 6.28 K/uL (4.8-10.8)
[2017-11-13 16:37] LABS: CALCIUM 9.5 mg/dl (8.5-10.1); CREATININE 0.91 mg/dl (0.60-1.20); POTASSIUM 3.6 mmol/L (3.5-5.1)
[2017-11-13] MEDS ORDERED: SODIUM CHLORIDE 0.9% 500ML 500 ML IV ONE (16:45)
--- NOTE | 2017-11-13 17:42 | Medical Consult ---
Consultation Date of Consultation: Nov 13, 2017. Attending Physician: Too Tomlin D.O. Reason for Consultation: perioperative medical management History of Present Illness 87yo female with history of HTN, glaucoma, atrial fibrillation, small bowel resection due to SBO, and GERD who presents today from home after Dr. Tomlin from the orthopedic spine service contacted her and recommended admission for repeat surgery. The patient had underwent an L2 to S1 decompression/fusion procedure on October 05 for severe spinal stenosis with resulting neurogenic claudication. The surgery was uncomplicated but since that time she has continued to have low back pain with radiation to the buttocks and b/l groin. Earlier this week she saw Dr. Tomlin in the office and on 11/09 she underwent a lumbar spine CT. When Dr. Tomlin contacted her today he reported that repeat surgery was warranted due to L2 compression fracture and instability. He recommended a revision tomorrow for the lumbar spine. The patient takes eliquis for her a. fib and her last dose was this am about 9am. In addition to her musculoskeletal complaints she complains of severe dizziness upon standing. The dizziness is a lightheadedness. The symptoms last about 2 minutes then resolve. She has also had dry heaves at times. She was just treated for a UTI in the last week and fortunately, at this time, she denies any ongoing UTI symptoms (dysuria, etc). Past Medical/Surgical History PMH: 1. HTN 2. atrial fibrillation 3. GERD 4. h/o SBO requiring ex lap 5. glaucoma 6. depression PSH: 1. b/l cataract extraction 2. left TKR 3. lumbar decompression/fusion procedure 10/12 4. breast biopsy 5. ABBI 6. ex lap with small bowel resection for SBO 7. 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) Allergies Coded Allergies: Amoxicillin (Verified Allergy, Unknown, ITCHING, 10/17/17) Clindamycin (Verified Allergy, Unknown, ITCHING, 10/17/17) Penicillins (Verified Allergy, Unknown, ITCHING, 10/17/17) Uncoded Allergies: opioids (Adverse Reaction, Unknown, hallucinations, 11/05/17) Home Medications Reported Home Medications Medications Dose Route/Sig Max Daily Dose Days Date Category Potassium Chloride 40 Meq/15 Ml (Potassium Chloride) 20 % Liq 10 Meq PO DAILY 30 11/05/17 Rx Travatan Z (Travoprost) 0.004 % Estuardo 1 Drops OP HS 08/31/17 Reported Hyzaar 25MG/100MG (HCTZ/Losartan Potassium) Tab 1 Tab PO QAM 08/31/17 Reported Eliquis (Apixaban) 5 Mg Tab 5 Mg PO BID 08/31/17 Reported Coreg (Carvedilol) 12.5 Mg Tab 12.5 Mg PO BID 08/31/17 Reported Citalopram (Citalopram Hydrobromide) 20 Mg Tab 20 Mg PO QAM 08/31/17 Reported Protonix (Pantoprazole Sodium) 40 Mg Tab 40 Mg PO QDD 09/13/14 Reported Cosopt Oph (Dorzolamide Hcl-Timolol Maleat) 1 Katy Katy 1 Drop OPB BID 06/25/12 Reported Current Inpatient Medications Current Inpatient Medications Medications (Trade) Dose Ordered Sig/Ajit Route Start Time Stop Time Status Last Admin Dose Admin Sodium Chloride 1,000 ml @ 75 mls/hr [id number] IV 11/13/17 14:15 12/13/17 14:14 11/13/17 14:23 75 MLS/HR Acetaminophen (Tylenol Tab) 1,000 mg Q8H PRN PO 11/13/17 14:15 12/13/17 14:14 Acetaminophen 100 ml @ 400 mls/hr Q8H PRN IV 11/13/17 14:15 12/13/17 14:14 Miscellaneous Information (Nursing Verbal Med Order) 1 ea ONE ONCE N/A 11/13/17 14:15 11/13/17 14:16 UNV Carvedilol (Coreg Tab) 12.5 mg BID PO 11/13/17 21:00 12/13/17 20:59 Citalopram Hydrobromide (celeXA TAB) 20 mg QAM PO 11/14/17 09:00 12/14/17 08:59 Potassium Chloride (Klor-Con M10) 10 meq QAM PO 11/14/17 09:00 12/14/17 08:59 UNV Pantoprazole Sodium (Protonix Tab) 40 mg QAM PO 11/14/17 09:00 12/14/17 08:59 UNV Travoprost (Travatan Z) 1 drops HS OP 11/13/17 21:00 12/13/17 20:59 UNV Losartan Potassium (coZAAR TAB) 100 mg QAM PO 11/14/17 09:00 12/14/17 08:59 UNV Hydrochlorothiazide (Hydrochlorothiazide Tab) 25 mg QAM PO 11/14/17 09:00 12/14/17 08:59 UNV Dorzolamide/ Timolol (Cosopt Op Soln) 1 drops BID OP 11/13/17 21:00 12/13/17 20:59 Review of Systems Constitutional: No fever, No chills, No sweats, No weight loss, No fatigue Eyes: No worsening of vision ENT: No nasal symptoms, No sore throat, No trouble swallowing Respiratory: No cough, No sputum, No wheezing, No shortness of breath, No dyspnea on exertion Cardiovascular: No chest pain, No orthopnea, No PND, No edema Abdomen: + nausea, + vomiting, No pain, No diarrhea, No constipation, No GI bleeding Musculoskeletal: No joint pain Genitourinary - Female: No dysuria, No urinary incontinence Neurologic: No memory loss, No paralysis, No weakness, No numbness/tingling Psychiatric: No depression symptoms Endocrine: No fatigue Hematologic / Lymphatic: No abnormal bleeding/bruising Integumentary: No rash Physical Exam Date Time Temp Pulse Resp B/P (MAP) Pulse Ox O2 Delivery O2 Flow Rate FiO2 11/13/17 14:48 36.4 64 18 117/75 (89) 97 Room Air 11/13/17 13:54 Room Air 11/13/17 13:25 36.4 67 18 95/69 (78) 100 Room Air General Appearance: WD/WN, no apparent distress, + pertinent finding (looks mildly dehydrated) Head: normocephalic, atraumatic Eyes: PERRL (lens implants b/l, PERRL) ENT: + pertinent finding (MM slightly dry) Neck: supple, thyroid normal, no JVD Respiratory/Chest: lungs clear, no respiratory distress, no accessory muscle use Cardiovascular: no gallop, no murmur, normal peripheral pulses, + irregularly irregular Abdomen/GI: normal bowel sounds, non tender, soft, no organomegaly Back: normal inspection Extremities/Musculoskelatal: no pedal edema Neurologic/Psych: no motor/sensory deficits (strength 5/5 x 4 extremities), alert, oriented x 3, + pertinent finding (decreased achilles reflexes b/l ) Skin: no rash Lymphatic: no adenopathy (no cervical LAD) Laboratory Results 11/13/17 16:01 Red Blood Count 3.92, Mean Corpuscular Volume 91.1, Mean Corpuscular Hemoglobin 31.1, Mean Corpuscular Hemoglobin Concent 34.2, Mean Platelet Volume 10.1, Neutrophils (%) (Auto) 73.9, Lymphocytes (%) (Auto) 16.2, Monocytes (%) (Auto) 8.8, Eosinophils (%) (Auto) 0.5, Basophils (%) (Auto) 0.3, Neutrophils # (Auto) 4.64, Lymphocytes # (Auto) 1.02, Monocytes # (Auto) 0.55, Eosinophils # (Auto) 0.03, Basophils # (Auto) 0.02 11/13/17 16:01 Test 11/13/17 15:41 11/13/17 16:01 White Blood Count 6.28 K/uL (4.8-10.8) Red Blood Count 3.92 M/uL (4.2-5.4) Hemoglobin 12.2 g/dL (12.0-16.0) Hematocrit 35.7 % (37-47) Mean Corpuscular Volume 91.1 fL (80-100) Mean Corpuscular Hemoglobin 31.1 pg (25-34) Mean Corpuscular Hemoglobin Concent 34.2 g/dl (32-36) Platelet Count 312 K/uL (130-400) Mean Platelet Volume 10.1 fL (7.4-10.4) Neutrophils (%) (Auto) 73.9 % Lymphocytes (%) (Auto) 16.2 % Monocytes (%) (Auto) 8.8 % Eosinophils (%) (Auto) 0.5 % Basophils (%) (Auto) 0.3 % Neutrophils # (Auto) 4.64 K/uL (1.4-6.5) Lymphocytes # (Auto) 1.02 K/uL (1.2-3.4) Monocytes # (Auto) 0.55 K/uL (0.11-0.59) Eosinophils # (Auto) 0.03 K/uL (0-0.5) Basophils # (Auto) 0.02 K/uL (0-0.2) RDW Standard Deviation 47.2 fL (36.4-46.3) RDW Coefficient of Variation 14.3 % (11.5-14.5) Immature Granulocyte % (Auto) 0.3 % Immature Granulocyte # (Auto) 0.02 K/uL (0.00-0.02) Prothrombin Time 11.0 SECONDS (9.0-12.0) Prothromb Time International Ratio 1.0 (0.9-1.1) Anion Gap 10.0 mmol/L (3-11) Est Creatinine Clear Calc Drug Dose 48.0 ml/min Estimated GFR () 66.7 Estimated GFR (Non- 57.5 BUN/Creatinine Ratio 20.4 (10-20) Calcium Level 9.5 mg/dl (8.5-10.1) Magnesium Level 2.1 mg/dl (1.8-2.4) EKG - my reading - a. fib without RVR, no ST changes Assessment & Plan 87yo female with history of HTN, glaucoma, atrial fibrillation, small bowel resection due to SBO, GERD, and lumbar decompression/fusion in early September 2017 for severe spinal stenosis who presents from home due to intractable back pain and need for recurrent lumbar back surgery. Recent imaging of the lumbar spine shows an L2 compression fracture. In addition to her musculoskeletal complaints she complains of severe dizziness/orthostasis. Orthostatics checked shortly after my visit with her were quite positive. 1. L2 compression fracture, intractable lumbar back pain - Dr. Tomlin to perform repeat surgery/revision. Unfortunately she took a dose of eliquis this AM. Since the half-life of eliquis is up to 12 hours her surgery will likely need to be delayed at least 48 hours, perhaps longer. I will defer this type of decision and the timing of her surgery to Dr. Tomlin and the anesthesia team. Her eliquis is being held at this time. Will also defer pain management to Dr. Tomlin's team. 2. orthostasis - this is likely due to HCTZ use. Her mild hyponatremia supports dehydration from diuretic use as the cause. Hold HCTZ. Hold losartan. Since she is so symptomatic will give a fluid bolus and then repeat the orthostatics. If still orthostatic then give an additional bolus. Agree with NS hydration and repeat BMP in am. 3. HTN - hold HCTZ, hold losartan, continue her beta danette for now. 4. glaucoma - continue home drops. 5. GERD - PPI. 6. recent UTI - check u/a for test of cure. 7. DVT proph - SCDs. Holding eliquis. 8. a. fib - EKG confirms such, and it is under excellent rate control with coreg. Holding eliquis. 9. hyponatremia - likely due to HCTZ use. Holding HCTZ, repeat BMP in am. Mag level noted to be normal. If Na fails to correct consider component of SIADH from SSRI use. 10. depression - celexa. 11. perioperative cardiac risk assessment - the patient tolerated her procedure well in September 2017 without cardiovascular complications. I anticipate a similar course. From a risk standpoint she is mild risk for a cardiovascular event. She offers no symptoms to suggest underlying ischemic heart disease. I believe she is optimized once her orthostasis is resolved. Thank you for this consult. Will follow with you. Additional Copies To Too Tomlin D.O.; Shoaib Senior PA-C
[2017-11-13 17:51] VITALS: BP_SYST 127; BP_SYST 130; BP_DIAS 76; BP_DIAS 84
[2017-11-13] MEDS: ACETAMINOPHEN 500 MG TAB PO PRN (19:10)
[2017-11-13] MEDS: NYSTATIN SUSP 500,000 U/5 ML UDC PO SCH (21:00)
[2017-11-13] MEDS: CARVEDILOL 12.5 MG TAB PO SCH (21:07)
[2017-11-13] MEDS: TRAVOPROST Z 0.004% OPH SOLN 2.5 ML BTL OP SCH (21:08)
[2017-11-13] MEDS: DORZOLAMIDE/TIMOLOL 22.3/6.8MG/ML 10 ML BTL OP SCH (21:08)
[2017-11-13 23:20] VITALS: BP 119/72; PULSE 66; TEMP 37.2; O2SAT 99
[2017-11-14] VITALS (13 sets, daily range): BP systolic 77–130; BP diastolic 53–80; PULSE 64–94; TEMP 36.4–37.2; O2SAT 97–100
[2017-11-14] MEDS: SODIUM CHLORIDE 0.9% 1000ML 1,000 ML IV SCH ×3 (03:41→21:00)
[2017-11-14 06:48] LABS: CREATININE 0.84 mg/dl (0.60-1.20)
[2017-11-14] MEDS: NYSTATIN SUSP 500,000 U/5 ML UDC PO SCH ×4 (08:14→20:48)
[2017-11-14] MEDS: DORZOLAMIDE/TIMOLOL 22.3/6.8MG/ML 10 ML BTL OP SCH ×2 (08:14→20:49)
[2017-11-14] MEDS: POTASSIUM CHLORIDE 10 MEQ TABCR PO SCH (08:15)
[2017-11-14] MEDS: CARVEDILOL 12.5 MG TAB PO SCH (08:15)
[2017-11-14] MEDS: CITALOPRAM 20 MG TAB PO SCH (08:16)
[2017-11-14] MEDS: PANTOprazole SOD 40 MG TAB PO SCH (08:17)
[2017-11-14] MEDS ORDERED: LOSARTAN POTASSIUM 50 MG TAB PO SCH (09:00)
[2017-11-14] MEDS ORDERED: HYDROCHLOROTHIAZIDE 25 MG TAB PO SCH (09:00)
--- NOTE | 2017-11-14 09:57 | History and Physical ---
History & Physical Date Nov 14, 2017. Chief Complaint Back and bilateral leg pain History of Present Illness The patient is a 87 year old female with complaints of back and bilateral leg pain. She has had a marked decline in status with the past several weeks. She has been diagnosed with an L2 compression fracture that has propagated and causing compression of the L2 nerve roots bilaterally. She is unable to sit or stand for any length of time secondary to pain. Her only comfortable position is lying in a lateral decubitus position. Subsequently we elected to admit the patient and undergo stabilization. Past Medical/Surgical History Medical Problems: (1) Benign tumor of breast (2) Bleeding (3) bowel resection (4) Clostridium difficile infection (5) Depression (6) Glaucoma (7) History of - hysterectomy (8) left knee replacement (9) Lumbar stenosis with neurogenic claudication (10) Muscular headache (11) Postoperative back pain (12) varicose vein stripping Additional History Hepatic Disease: No Endocrine Disorder: No Kidney Disease: No Hypertension: Yes Heart Disease: No Bleeding Tendencies: No Infectious Diseases: No Allergies Coded Allergies: Amoxicillin (Verified Allergy, Unknown, ITCHING, 10/17/17) Clindamycin (Verified Allergy, Unknown, ITCHING, 10/17/17) Penicillins (Verified Allergy, Unknown, ITCHING, 10/17/17) Uncoded Allergies: opioids (Adverse Reaction, Unknown, hallucinations, 11/05/17) Home Medications Scheduled Apixaban (Eliquis), 5 MG PO BID Carvedilol (Coreg), 12.5 MG PO BID Citalopram Hydrobromide (Citalopram), 20 MG PO QAM Dorzolamide Hcl-Timolol Maleat (Cosopt Oph), 1 DROP OPB BID Hctz/Losartan (Hyzaar 25MG/100MG), 1 TAB PO QAM Pantoprazole (Protonix), 40 MG PO QDD Potassium Chloride 40 Meq/15 Ml (Potassium Chloride 40 Meq/15 Ml), 10 MEQ PO DAILY Travoprost (Travatan Z), 1 DROPS OP HS Physical Examination Skin: warm/dry, no rash Eyes: normal inspection, EOMI, sclerae normal ENT: normal ENT inspection, pharynx normal Head: normocephalic, atraumatic Neck: supple, no adenopathy, trachea midline Respiratory/Chest: lungs clear, normal breath sounds, no respiratory distress Cardiovascular: regular rate, rhythm, no edema, no murmur Abdomen / GI: normal bowel sounds, non tender Back: normal inspection Extremities: normal inspection, normal range of motion Neurologic/Psych: no motor/sensory deficits, alert, normal reflexes, oriented x 3 Diagnosis L2 compression fracture with instability and bilateral leg pain Plan of Treatment Assessment L2 compression fracture with subsequent neural compression. Plan at this time she will require removal of instrumentation most likely L2-S1 with extension of the fusion to the T10 level. Risks benefits pros cons and alternatives were outlined in detail. Plan for surgery soon as possible.
[2017-11-14] MEDS ORDERED: VANCOMYCIN 1GM ED/ASU OMNICELL ONE (11:56)
[2017-11-14] MEDS ORDERED: BUPIVACAINE/EPINEPHRINE 0.5% MPF 1:200,000 30 ML VIAL ONE (11:57)
[2017-11-14] MEDS ORDERED: FENTANYL CITRATE INJ 50 MCG/1 ML 2 ML VIAL ONE ×3 (11:57→14:14)
[2017-11-14] MEDS ORDERED: BACITRACIN 50000 UNIT VIAL ONE (11:57)
[2017-11-14] MEDS ORDERED: MIDAZOLAM HCL 1 MG/ML 2ML VIAL ONE (11:57)
[2017-11-14] MEDS ORDERED: THROMBIN FOR SOLN 20000 UNIT KIT ONE ×2 (11:58→12:47)
[2017-11-14] MEDS ORDERED: HYDROmorphone INJ 2 MG/ML SYR/VIAL ONE ×2 (11:58→13:32)
[2017-11-14] MEDS ORDERED: NURSING VERBAL MED ORDER STA (11:59)
[2017-11-14] MEDS ORDERED: FENTANYL CITRATE INJ 50 MCG/1 ML 2 ML VIAL IV PRN (12:15)
[2017-11-14] MEDS ORDERED: PROMETHAZINE HCL INJ 6.25 MG in SODIUM CHLORIDE 0.9% 50ML 50 ML IV PRN (12:15)
[2017-11-14] MEDS ORDERED: ONDANSETRON INJ 2 MG/ML 2 ML VIAL IV PRN ×2 (12:15→14:30)
[2017-11-14] MEDS ORDERED: EpHEDrine SULFATE INJ 50 MG/ML AMP IV PRN (12:15)
[2017-11-14] MEDS ORDERED: HYDROmorphone INJ 1 MG/ML SYR IV PRN (12:15)
[2017-11-14] MEDS ORDERED: ATROPINE SULFATE 0.1 MG/ML 5ML SYR IV PRN (12:15)
[2017-11-14] MEDS ORDERED: VANCOMYCIN HCL 1000MG/20ML VIAL TOP ONE (13:16)
[2017-11-14] MEDS ORDERED: LIDOCAINE HCL 2% 2 ML VIAL (20MG/ML) ONE (13:17)
[2017-11-14] MEDS ORDERED: PHENYLEPHRINE 100MCG/ML 5ML SYR ONE ×2 (13:17→14:24)
[2017-11-14] MEDS ORDERED: ONDANSETRON INJ 2 MG/ML 2 ML VIAL ONE ×2 (13:17→14:43)
[2017-11-14] MEDS ORDERED: DEXAMETHASONE SOD INJ 4 MG/ML VIAL ONE (13:17)
[2017-11-14] MEDS ORDERED: PROPOFOL IV EMULSION 10 MG/ML 20 ML VIAL ONE (13:17)
[2017-11-14] MEDS ORDERED: EpHEDrine SULFATE 50MG/5ML SYR ONE ×2 (13:17→14:24)
[2017-11-14] MEDS ORDERED: GENTAMICIN SULFATE 40 MG/ML 2 ML VIAL INSTIL ONE (13:18)
[2017-11-14] MEDS ORDERED: ALBUMIN HUMAN 5% 12.5 GM/250 ML VIAL IV ONE (13:32)
[2017-11-14] MEDS ORDERED: FLOSEAL HEMOSTATIC MATRIX 10ML TOP ONE (14:08)
[2017-11-14 14:17] LABS: HEMATOCRIT 29.1 % (37-47); HEMOGLOBIN 9.5 g/dL (12.0-16.0)
--- NOTE | 2017-11-14 14:17 | [facility] Operative Report ---
Operative Report Operative Date Nov 14, 2017. Pre-Operative Diagnosis L2 Compression Fracture with Instability and Bilateral Leg Pain, Previous Fusion L2-S1 Post-Operative Diagnosis L2 Compression Fracture with Instability and Bilateral Leg Pain, Previous Fusion L2-S1 Procedure(s) Performed 1. Removal of posterior instrumentation L2 pedicle screw and end caps for the remaining pedicle screws L3 through S1. #2 placement posterior segmental instrumentation T11 T12-L1. #3 posterior spinal fusion T11-L3. #4 placement InFUSE collagen sponge combined with master graft in the posterior lateral gutters. #5 placement of stimulant beads impregnated with vancomycin and gentamicin. Surgeon Dr. Too Tomlin Hide Inspector And Sorter Surgeon(s) Jeanette Anthony PA-C Estimated Blood Loss 725 ml Findings Burst fracture L2 Specimens A. Removed Hardware L2 Anesthesia Type General Description of Procedure Patient was met with preoperatively case discussed all questions addressed. After informed consent obtained patient was taken to the operative suite underwent intubation and placed in the prone position on the Federico table on top of the Jayden frame. All bony prominences were well-padded eyes inspected to ensure no external pressure placed upon the. This point the thoracolumbar spine was prepped and draped in normal sterile fashion. Sharp dissection with the assistance of Bovie cautery was performed down to and exposing the lamina and transverse processes of T11 T12-L1 and instrumentation from L2-S1 including bilateral iliac bolts. I then proceeded remove the end caps and loosen the connector to the iliac bolts remove the previous rods. The L2 pedicle screws were explored and noted to be loose and removed. Then placed pedicle screws in T11-T12 and L1 bilaterally with the assistance of fluoroscopy and new sara was measured cut contoured and locked into position bilaterally. The transverse processes of T11 T12-L1 and L2 were then burred to subcortical bleeding bone. Infuse collagen sponge master graft and local autograft was placed in the posterior gutters. Approximately 20 cc of stimulant beads impregnated with vancomycin and gentamicin were placed throughout the wound. 15 round RICKY drain was inserted. Incision was then closed with 1 Vicryl fascia 2-0 Vicryl subcutaneously 4 Monocryl for fashion closure Steri-Strips sterile dressings placed. Patient weakened taken PACU in stable condition. Please note Jeanette Huynh was present at the entire procedure involved in patient positioning complex portions of the surgery and final skin closure. I attest to the content of the Intraoperative Record and any orders documented therein. Any exceptions are noted below.
[2017-11-14] MEDS ORDERED: ROCURONIUM BROMIDE 10 MG/ML 5 ML VIAL ONE (14:24)
[2017-11-14] MEDS ORDERED: NEOSTIGMINE METHYLSULFATE 1 MG/ML 10ML VIAL ONE (14:24)
[2017-11-14] MEDS ORDERED: GLYCOPYRROLATE INJ 0.2 MG/ML VIAL ONE (14:24)
[2017-11-14] MEDS ORDERED: DO NOT ADMINISTER PNEUMOCOCCAL VACCINE PRN (14:30)
[2017-11-14] MEDS ORDERED: BISACODYL 10 MG SUPP PR PRN (14:30)
[2017-11-14] MEDS ORDERED: VANCOMYCIN CONSULT ACTIVE PRN (14:30)
[2017-11-14] MEDS ORDERED: NALOXONE HCL 0.4 MG/1 ML VIAL/CARP IV PRN (14:30)
[2017-11-14] MEDS ORDERED: DO NOT ADMINISTER FLU VACCINE PRN (14:30)
[2017-11-14] MEDS ORDERED: ALUMINUM/MAGNESIUM SUSP 30 ML UDC PO PRN (14:30)
[2017-11-14] MEDS ORDERED: METOCLOPRAMIDE HCL INJ 5 MG/ML 2 ML VIAL IV PRN (14:30)
[2017-11-14] MEDS ORDERED: FAMOTIDINE 20 MG TAB PO PRN (14:30)
[2017-11-14] MEDS ORDERED: PROMETHAZINE HCL INJ 12.5 MG in SODIUM CHLORIDE 0.9% 50ML 50 ML IV PRN (14:30)
[2017-11-14] MEDS ORDERED: MAGNESIUM HYDROXIDE SUSP 30 ML UDC PO PRN (14:30)
[2017-11-14] MEDS ORDERED: SOD PHOSPHATE/SOD BIPHOSPHATE ENEMA 132 ML BTL PR PRN (14:30)
--- NOTE | 2017-11-14 14:30 | DIAGNOSTIC IMAGING REPORT ---
INTRAOPERATIVE RADIOGRAPHS CLINICAL HISTORY: Spinal fusion and hardware removal. Fluoroscopy time: 37 seconds. FINDINGS: 3 spot fluoroscopic views of the thoracolumbar spine are presented. There is evidence of multilevel laminectomy and spinal fusion throughout the thoracolumbar spine. The orthopedic hardware appears intact. IMPRESSION: Intraoperative images from extensive thoracolumbar spinal fusion surgery. See operative report for detailed findings. Electronically signed by: Luis Pearson M.D. 11/14/2017 2:28 PM Dictated Date/Time: 11/14/2017 2:27 PM
[2017-11-14] MEDS ORDERED: KETOROLAC TROMETHAMINE 30 MG/ML VIAL ONE (14:35)
--- NOTE | 2017-11-14 14:48 | Anesthesiology Progress Note ---
Anesthesia Post Op Note Date & Time Nov 14, 2017 at 14:48 Vital Signs Pain Intensity: 0 Vital Signs Past 12 Hours Date Time Temp Pulse Resp B/P (MAP) Pulse Ox O2 Delivery O2 Flow Rate FiO2 11/14/17 10:27 84 116/78 (91) 11/14/17 10:21 85 128/77 (94) 11/14/17 10:19 130/80 (97) 11/14/17 08:28 Room Air 11/14/17 07:10 36.4 66 16 127/78 (94) 97 Room Air Notes Mental Status: alert / awake / arousable, participated in evaluation Pt Amnestic to Procedure: Yes Nausea / Vomiting: adequately controlled Pain: adequately controlled Airway Patency, RR, SpO2: stable & adequate BP & HR: stable & adequate Hydration State: stable & adequate Anesthetic Complications: no major complications apparent
--- NOTE | 2017-11-14 20:08 | Progress Note ---
Subjective Date of Service: Nov 14, 2017. Subjective Pt evaluation today including: conversation w/ patient, conversation w/ family (son at bedside ), physical exam, chart review, lab review, review of studies ( op note), review of inpatient medication list Pain: back PO Intake: eating dinner during my visit Voiding: flynn catheter in place patient resting comfortably s/p back surgery today no nausea, emesis, abd pain, chest pain or dyspnea no dizziness or lightheadedness at rest Problem List Medical Problems: (1) Chills (without fever) Status: Acute (2) Confusion Status: Acute (3) Generalized weakness Status: Acute (4) Hallucination Status: Acute (5) Hyponatremia Status: Acute (6) Lumbar back pain Status: Acute (7) Post-operative pain Status: Acute (8) UTI (urinary tract infection) Status: Acute Review of Systems Constitutional: No fever Respiratory: No cough Cardiac: No chest pain, No orthopnea Abdomen: No pain Objective Vital Signs Date Time Temp Pulse Resp B/P (MAP) Pulse Ox O2 Delivery O2 Flow Rate FiO2 11/14/17 19:32 95/65 (75) 11/14/17 18:56 77/53 (61) 11/14/17 18:16 36.8 94 18 91/58 (69) 100 Room Air 11/14/17 17:18 36.6 81 20 123/75 (91) 100 Nasal Cannula 3.0 11/14/17 16:28 36.4 64 18 122/69 (86) 100 Nasal Cannula 3.0 11/14/17 16:00 36.4 73 16 119/76 (90) 100 Nasal Cannula 3.0 11/14/17 15:30 100 Nasal Cannula 3.0 11/14/17 15:30 100 Nasal Cannula 3.0 11/14/17 15:30 36.6 70 16 118/73 (88) 100 Nasal Cannula 3.0 11/14/17 15:15 36.3 65 16 142/80 100 Nasal Cannula 4 11/14/17 15:05 71 16 123/68 100 Nasal Cannula 4 11/14/17 14:55 77 16 121/71 100 Oxymask 10 11/14/17 14:45 86 16 123/72 100 Oxymask 10 11/14/17 14:38 36.3 91 16 95/54 100 Oxymask 10 11/14/17 10:27 84 116/78 (91) 11/14/17 10:21 85 128/77 (94) 11/14/17 10:19 130/80 (97) 11/14/17 08:28 Room Air 11/14/17 07:10 36.4 66 16 127/78 (94) 97 Room Air 11/14/17 00:10 Room Air 11/13/17 23:20 37.2 66 16 119/72 (88) 99 Room Air Physical Exam General Appearance: no apparent distress ENT: pharynx normal Neck: no JVD Respiratory/Chest: lungs clear, no respiratory distress, no accessory muscle use Cardiovascular: regular rate, rhythm, no gallop, no murmur Abdomen: normal bowel sounds, non tender, soft, no organomegaly Extremities: no pedal edema Neurologic/Psychiatric: alert, oriented x 3 Skin: + pallor Laboratory Results Last 24 Hours Test 11/13/17 21:15 11/14/17 05:31 11/14/17 14:04 Urine Color YELLOW Urine Appearance CLEAR Urine pH 6.5 Urine Specific [place] 1.012 Urine Protein NEG Urine Glucose (UA) NEG Urine Ketones NEG Urine Occult Blood NEG Urine Nitrite NEG Urine Bilirubin NEG Urine Urobilinogen NEG Urine Leukocyte Esterase NEG Sodium Level 135 mmol/L Potassium Level 4.0 mmol/L Chloride Level 102 mmol/L Carbon Dioxide Level 23 mmol/L Anion Gap 10.0 mmol/L Blood Urea Nitrogen 16 mg/dl Creatinine 0.84 mg/dl Est Creatinine Clear Calc Drug Dose 52.0 ml/min Estimated GFR () 73.5 Estimated GFR (Non- 63.4 BUN/Creatinine Ratio 18.6 Random Glucose 94 mg/dl Calcium Level 9.0 mg/dl Hemoglobin 9.5 g/dL Hematocrit 29.1 % Assessment and Plan 87yo female with history of HTN, glaucoma, atrial fibrillation, 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 Recent imaging of the lumbar spine showed an L2 compression fracture. In addition to her musculoskeletal complaints she complained of severe dizziness/orthostasis and orthostatics were indeed quite positive. 1. L2 compression fracture, intractable lumbar back pain - s/p lumbar revision back surgery today by Dr. Tomlin. Noted that she had 700+cc of blood loss. Post-op Hb 9.5. Need to follow BPs, urine output, etc carefully post-op. Repeat H/H now and cbc in AM. 2. orthostasis - this was likely due to HCTZ use. s/p fluid bolus yesterday and hydration overnight - orthostatics now normal. At discharge I would likely not resume the HCTZ. 3. HTN - hold HCTZ, hold losartan, hold coreg due to low-normal BPs. Recheck H /H now. 4. glaucoma - continue home drops. 5. GERD - PPI. 6. recent UTI - repeat u/a yesterday wnl. 7. DVT proph - SCDs. Holding eliquis that she had been taking at home for her a. fib. 8. a. fib - EKG confirms such, and it is under excellent rate control. Holding eliquis. 9. hyponatremia - likely due to HCTZ use. Resolved. 10. depression - celexa. 11. acute blood loss anemia - repeat H/H now and then cbc in am. Will need iron supplementation at minimum. 12. FEN - continue IVF, diet as tolerated, BMP am. Continued [facility] stay due to: inadequate oral pain control, ambulation difficulties, multiple IV medications needed Discharge planning: uncertain
[2017-11-14] MEDS: TRAVOPROST Z 0.004% OPH SOLN 2.5 ML BTL OP SCH (20:48)
[2017-11-14] MEDS: DOCUSATE SODIUM/SENNA 50/8.6MG TAB PO SCH (20:48)
[2017-11-14 20:53] LABS: HEMATOCRIT 24.3 % (37-47)
[2017-11-15] VITALS (16 sets, daily range): BP systolic 101–146; BP diastolic 55–83; PULSE 68–95; TEMP 36.3–37.3; O2SAT 96–99
[2017-11-15] MEDS ORDERED: VANCOMYCIN IV 1,250 MG in SODIUM CHLORIDE 0.9% 250ML 250 ML IV SCH ×2
[2017-11-15 02:14] LABS: HEMATOCRIT 22.2 % (37-47); HEMOGLOBIN 7.4 g/dL (12.0-16.0); MEAN CELL VOLUME 91.7 fL (80-100); MEAN CORPUSCULAR HEMOGLOBIN 30.6 pg (25-34); MEAN CORPUSCULAR HGB CONC 33.3 g/dl (32-36); MEAN PLATELET VOLUME 9.1 fL (7.4-10.4); PLATELET COUNT 229 K/uL (130-400); RED CELL DISTRIBUTION WIDTH CV 14.2 % (11.5-14.5); RED CELL DISTRIBUTION WIDTH SD 47.5 fL (36.4-46.3); WHITE BLOOD COUNT 9.71 K/uL (4.8-10.8)
[2017-11-15 02:49] LABS: IG# 0.03 K/uL (0.00-0.02); LYMPH % 5.1 %; MONO % 2.8 %; MONO ABS # 0.27 K/uL (0.11-0.59); NEUT % 91.8 %; NEUT ABS # 8.91 K/uL (1.4-6.5)
[2017-11-15 02:50] LABS: CALCIUM 8.3 mg/dl (8.5-10.1); CREATININE 0.84 mg/dl (0.60-1.20); POTASSIUM 4.5 mmol/L (3.5-5.1)
[2017-11-15] MEDS ORDERED: HYDROmorphone INJ 0.5 MG/0.5 ML SYR IV PRN (06:00)
--- NOTE | 2017-11-15 08:36 | Progress Note ---
Progress Note Date of Service Nov 15, 2017. Progress Note Patient's back pain is markedly improved. Leg pain resolved. Vital signs are stable. Hemoglobin 7.4 today. On exam she is sitting up at the bedside has good strength testing appears quite comfortable. Assessment status post thoracolumbar fusion per plan at this time she is to undergo very light activity today. We do not want her lifting more than 1-2 pounds. She is to wear her TLSO brace when ambulating.
[2017-11-15] MEDS: DORZOLAMIDE/TIMOLOL 22.3/6.8MG/ML 10 ML BTL OP SCH ×2 (08:37→21:06)
[2017-11-15] MEDS: POTASSIUM CHLORIDE 10 MEQ TABCR PO SCH (08:38)
[2017-11-15] MEDS: PANTOprazole SOD 40 MG TAB PO SCH (08:38)
[2017-11-15] MEDS: CITALOPRAM 20 MG TAB PO SCH (08:38)
[2017-11-15] MEDS: NYSTATIN SUSP 500,000 U/5 ML UDC PO SCH ×4 (08:38→21:08)
--- NOTE | 2017-11-15 09:13 | Anesthesiology Progress Note ---
Anesthesia Post Op Note Date & Time Nov 15, 2017 at 09:12 Vital Signs Pain Intensity: 0.0 Vital Signs Past 12 Hours Date Time Temp Pulse Resp B/P (MAP) Pulse Ox O2 Delivery O2 Flow Rate FiO2 11/15/17 08:45 36.4 81 16 137/79 99 11/15/17 08:43 36.3 81 16 137/79 99 11/15/17 08:33 Room Air 11/15/17 08:15 36.7 71 16 134/81 98 11/15/17 08:15 36.7 71 16 134/71 98 11/15/17 07:57 37.2 82 16 134/83 99 11/15/17 07:42 37.2 85 16 127/65 98 0.0 11/15/17 06:20 37.2 87 16 114/71 98 11/15/17 05:20 37.3 70 16 105/57 98 11/15/17 04:50 37.1 81 16 112/69 98 11/15/17 04:36 37.2 85 16 101/55 96 11/15/17 02:00 37.2 95 16 106/65 (79) 99 Room Air 11/14/17 23:55 Room Air 11/14/17 23:12 37.2 74 15 110/75 (87) 97 Room Air Notes Mental Status: alert / awake / arousable, participated in evaluation Pt Amnestic to Procedure: Yes Nausea / Vomiting: adequately controlled Pain: adequately controlled Airway Patency, RR, SpO2: stable & adequate BP & HR: stable & adequate Hydration State: stable & adequate Anesthetic Complications: no major complications apparent
[2017-11-15] MEDS: SODIUM CHLORIDE 0.9% 1000ML 1,000 ML IV SCH ×2 (11:05→11:06)
[2017-11-15 13:51] LABS: HEMATOCRIT 28.3 % (37-47); HEMOGLOBIN 9.8 g/dL (12.0-16.0)
[2017-11-15 14:04] LABS: HEMOGLOBIN A1C 5.6 % (4.5-5.6)
[2017-11-15] MEDS: ACETAMINOPHEN 500 MG TAB PO PRN (15:40)
[2017-11-15] MEDS ORDERED: NURSING VERBAL MED ORDER ONE (16:45)
--- NOTE | 2017-11-15 20:01 | Progress Note ---
Subjective Date of Service: Nov 15, 2017. Subjective Pt evaluation today including: conversation w/ patient, conversation w/ family (son at bedside), physical exam, chart review, lab review, review of inpatient medication list Pain: back but minimal PO Intake: tolerating diet Voiding: flynn catheter in place "I feel great!" original pain prior to surgery (b/l groin pain, buttock pain, etc) -- is now resolved denies any new complaints no dizziness Problem List Medical Problems: (1) Chills (without fever) Status: Acute (2) Confusion Status: Acute (3) Generalized weakness Status: Acute (4) Hallucination Status: Acute (5) Hyponatremia Status: Acute (6) Lumbar back pain Status: Acute (7) Post-operative pain Status: Acute (8) UTI (urinary tract infection) Status: Acute Review of Systems Constitutional: No fever Respiratory: No cough, No shortness of breath, No dyspnea on exertion Cardiac: No chest pain, No orthopnea Abdomen: + problem reported (+flatus), No pain, No nausea, No vomiting Objective Vital Signs Date Time Temp Pulse Resp B/P (MAP) Pulse Ox O2 Delivery O2 Flow Rate FiO2 11/15/17 15:35 Room Air 11/15/17 15:07 37.1 79 16 130/68 (88) 97 Room Air 11/15/17 14:42 79 99 11/15/17 10:39 37.2 76 18 115/67 99 11/15/17 09:45 36.7 77 18 122/75 99 11/15/17 08:45 36.4 81 16 137/79 99 11/15/17 08:43 36.3 81 16 137/79 99 11/15/17 08:33 Room Air 11/15/17 08:15 36.7 71 16 134/81 98 11/15/17 08:15 36.7 71 16 134/71 98 11/15/17 07:57 37.2 82 16 134/83 99 11/15/17 07:42 37.2 85 16 127/65 98 0.0 11/15/17 06:20 37.2 87 16 114/71 98 11/15/17 05:20 37.3 70 16 105/57 98 11/15/17 04:50 37.1 81 16 112/69 98 8/21/18 04:36 37.2 85 16 101/55 96 11/15/17 02:00 37.2 95 16 106/65 (79) 99 Room Air 11/14/17 23:55 Room Air 11/14/17 23:12 37.2 74 15 110/75 (87) 97 Room Air 11/14/17 20:54 77 109/67 (81) 98 Room Air Physical Exam General Appearance: no apparent distress ENT: pharynx normal Neck: no JVD Respiratory/Chest: lungs clear, no respiratory distress, no accessory muscle use Cardiovascular: no gallop, no murmur, + irregularly irregular Abdomen: normal bowel sounds, non tender, soft, no organomegaly Extremities: no pedal edema Neurologic/Psychiatric: alert, oriented x 3 Laboratory Results Last 24 Hours Test 11/14/17 20:37 11/15/17 02:05 11/15/17 08:12 11/15/17 12:08 Hemoglobin 8.0 g/dL 7.4 g/dL Hematocrit 24.3 % 22.2 % White Blood Count 9.71 K/uL Red Blood Count 2.42 M/uL Mean Corpuscular Volume 91.7 fL Mean Corpuscular Hemoglobin 30.6 pg Mean Corpuscular Hemoglobin Concent 33.3 g/dl Platelet Count 229 K/uL Mean Platelet Volume 9.1 fL Neutrophils (%) (Auto) 91.8 % Lymphocytes (%) (Auto) 5.1 % Monocytes (%) (Auto) 2.8 % Eosinophils (%) (Auto) 0.0 % Basophils (%) (Auto) 0.0 % Neutrophils # (Auto) 8.91 K/uL Lymphocytes # (Auto) 0.50 K/uL Monocytes # (Auto) 0.27 K/uL Eosinophils # (Auto) 0.00 K/uL Basophils # (Auto) 0.00 K/uL RDW Standard Deviation 47.5 fL RDW Coefficient of Variation 14.2 % Immature Granulocyte % (Auto) 0.3 % Immature Granulocyte # (Auto) 0.03 K/uL Ovalocytes 1+ Sodium Level 135 mmol/L Potassium Level 4.5 mmol/L Chloride Level 105 mmol/L Carbon Dioxide Level 22 mmol/L Anion Gap 8.0 mmol/L Blood Urea Nitrogen 15 mg/dl Creatinine 0.84 mg/dl Est Creatinine Clear Calc Drug Dose 52.0 ml/min Estimated GFR () 73.5 Estimated GFR (Non- 63.4 BUN/Creatinine Ratio 18.4 Random Glucose 175 mg/dl Calcium Level 8.3 mg/dl Bedside Glucose 157 mg/dl 205 mg/dl Test 11/15/17 13:27 11/15/17 17:42 Hemoglobin 9.8 g/dL Hematocrit 28.3 % Estimated Average Glucose 114 mg/dl Hemoglobin A1c 5.6 % Bedside Glucose 181 mg/dl Assessment and Plan 87yo female with history of HTN, glaucoma, atrial fibrillation, 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 Recent imaging of the lumbar spine showed an L2 compression fracture. In addition to her musculoskeletal complaints she complained of severe dizziness/orthostasis and orthostatics were indeed quite positive. 1. L2 compression fracture, intractable lumbar back pain - POD #1 s/p lumbar revision back surgery by Dr. Tomlin. Significant acute blood loss anemia requiring 2 units PRBCs. Repeat H/H this afternoon following completion of transfusion -- stable. Will obtain CBC in am. Defer pain management, disposition, flynn, etc to ortho. 2. orthostasis - this was likely due to HCTZ use at home. Resolved. At discharge I would likely not resume the HCTZ. 3. HTN - hold HCTZ, hold losartan. Resume coreg for rate control of a. fib as BPs are improved following PRBCs. 4. glaucoma - continue home drops. 5. GERD - PPI. 6. recent UTI - repeat u/a wnl. 7. DVT proph - SCDs. Holding eliquis that she had been taking at home for her a. fib. 8. a. fib - EKG confirms such, and it is under excellent rate control. Resume coreg now that BPs are more stable. Holding eliquis. 9. hyponatremia - likely due to HCTZ use. Resolved. BMP am for stability. 10. depression - celexa. 11. acute blood loss anemia - s/p 2 units PRBCs with improved H/H. CBC am. Start ferrous sulfate in am. will continue to follow Continued [facility] stay due to: ambulation difficulties, multiple IV medications needed Discharge planning: rehab hospital
[2017-11-15] MEDS: TRAVOPROST Z 0.004% OPH SOLN 2.5 ML BTL OP SCH (21:07)
[2017-11-15] MEDS: DOCUSATE SODIUM/SENNA 50/8.6MG TAB PO SCH (21:08)
[2017-11-15] MEDS: CARVEDILOL 12.5 MG TAB PO SCH (21:08)
[2017-11-16] MEDS: ACETAMINOPHEN IV 100 ML IV PRN (00:41)
[2017-11-16] MEDS: POLYETHYLENE (MIRALAX) 17 GM PACK PO SCH ×3 (06:19→17:17)
[2017-11-16 07:20] LABS: HEMOGLOBIN 9.4 g/dL (12.0-16.0); MEAN CELL VOLUME 87.9 fL (80-100); MEAN CORPUSCULAR HEMOGLOBIN 30.6 pg (25-34); MEAN CORPUSCULAR HGB CONC 34.8 g/dl (32-36); MEAN PLATELET VOLUME 9.8 fL (7.4-10.4); PLATELET COUNT 201 K/uL (130-400); RED CELL DISTRIBUTION WIDTH CV 15.7 % (11.5-14.5); RED CELL DISTRIBUTION WIDTH SD 50.7 fL (36.4-46.3); WHITE BLOOD COUNT 11.15 K/uL (4.8-10.8)
[2017-11-16 07:25] VITALS: BP 146/77; PULSE 73; TEMP 37.1; O2SAT 98
[2017-11-16 08:08] LABS: CALCIUM 9.9 mg/dl (8.5-10.1); CREATININE 0.72 mg/dl (0.60-1.20); POTASSIUM 4.1 mmol/L (3.5-5.1)
[2017-11-16] MEDS: CITALOPRAM 20 MG TAB PO SCH (09:26)
[2017-11-16] MEDS: PANTOprazole SOD 40 MG TAB PO SCH (09:26)
[2017-11-16] MEDS: NYSTATIN SUSP 500,000 U/5 ML UDC PO SCH ×4 (09:27→20:34)
[2017-11-16] MEDS: DORZOLAMIDE/TIMOLOL 22.3/6.8MG/ML 10 ML BTL OP SCH ×2 (09:27→20:34)
[2017-11-16] MEDS: POTASSIUM CHLORIDE 10 MEQ TABCR PO SCH (09:27)
[2017-11-16] MEDS ORDERED: LOSARTAN POTASSIUM 50 MG TAB PO ONE (09:49)
[2017-11-16] MEDS: CARVEDILOL 12.5 MG TAB PO SCH ×2 (09:54→20:35)
[2017-11-16] MEDS: ACETAMINOPHEN 500 MG TAB PO PRN (13:08)
--- NOTE | 2017-11-16 13:24 | Progress Note ---
Progress Note Date of Service Nov 16, 2017. Progress Note Back pain is improving. Leg pain markedly improved. Vital signs stable. On exam she is ambulate in halls with her TLSO brace. Tolerating this well. Assessment status post thoracal lumbar fusion. Plan at this time she will continue therapy brace when out of bed and hopefully discharge to [facility] in the next few days.
[2017-11-16 16:01] VITALS: BP 115/69; PULSE 62; TEMP 37.2; O2SAT 97
[2017-11-16 20:32] VITALS: BP 117/71; PULSE 66
[2017-11-16] MEDS: TRAVOPROST Z 0.004% OPH SOLN 2.5 ML BTL OP SCH (20:34)
[2017-11-16] MEDS: DOCUSATE SODIUM/SENNA 50/8.6MG TAB PO SCH (20:35)
[2017-11-16 23:25] VITALS: BP 105/68; PULSE 67; TEMP 37.7; O2SAT 96
[2017-11-17] MEDS: ACETAMINOPHEN 500 MG TAB PO PRN ×2 (00:03→08:40)
--- NOTE | 2017-11-17 05:03 | Progress Note ---
Subjective Date of Service: Nov 16, 2017. Subjective Pt evaluation today including: conversation w/ patient, conversation w/ family (son at bedside), physical exam, chart review, lab review, review of inpatient medication list Pain: back PO Intake: fair today Voiding: no voiding problems doesn't feel as good as yesterday not as much appetite passing flatus no stool BPs high this am Problem List Medical Problems: (1) Chills (without fever) Status: Acute (2) Confusion Status: Acute (3) Generalized weakness Status: Acute (4) Hallucination Status: Acute (5) Hyponatremia Status: Acute (6) Lumbar back pain Status: Acute (7) Post-operative pain Status: Acute (8) UTI (urinary tract infection) Status: Acute Review of Systems Constitutional: No fever Respiratory: No cough, No sputum, No wheezing, No shortness of breath, No dyspnea on exertion Cardiac: No chest pain Abdomen: + nausea, No pain, No vomiting Neurologic: + problem reported (denies any dizziness) Objective Vital Signs Date Time Temp Pulse Resp B/P (MAP) Pulse Ox O2 Delivery O2 Flow Rate FiO2 11/16/17 16:01 37.2 62 16 115/69 (84) 97 Room Air 11/16/17 15:25 Room Air 11/16/17 07:40 Room Air 11/16/17 07:25 37.1 73 16 146/77 (100) 98 Room Air 11/16/17 00:45 Room Air 11/15/17 23:35 37.1 68 16 121/69 (86) 96 Room Air 11/15/17 21:05 79 146/79 (101) Physical Exam General Appearance: no apparent distress ENT: pharynx normal Neck: no JVD Respiratory/Chest: chest non-tender, lungs clear, no respiratory distress, no accessory muscle use Cardiovascular: no gallop, no murmur, + irregularly irregular Abdomen: normal bowel sounds, non tender, soft, no organomegaly Extremities: no pedal edema Neurologic/Psychiatric: alert, oriented x 3 Laboratory Results Last 24 Hours Test 11/15/17 21:00 11/16/17 07:04 11/16/17 08:24 11/16/17 12:15 Bedside Glucose 191 mg/dl 108 mg/dl 103 mg/dl White Blood Count 11.15 K/uL Red Blood Count 3.07 M/uL Hemoglobin 9.4 g/dL Hematocrit 27.0 % Mean Corpuscular Volume 87.9 fL Mean Corpuscular Hemoglobin 30.6 pg Mean Corpuscular Hemoglobin Concent 34.8 g/dl RDW Standard Deviation 50.7 fL RDW Coefficient of Variation 15.7 % Platelet Count 201 K/uL Mean Platelet Volume 9.8 fL Sodium Level 137 mmol/L Potassium Level 4.1 mmol/L Chloride Level 104 mmol/L Carbon Dioxide Level 25 mmol/L Anion Gap 8.0 mmol/L Blood Urea Nitrogen 13 mg/dl Creatinine 0.72 mg/dl Est Creatinine Clear Calc Drug Dose 60.7 ml/min Estimated GFR () 88.5 Estimated GFR (Non- 76.4 BUN/Creatinine Ratio 18.2 Random Glucose 103 mg/dl Calcium Level 9.9 mg/dl Assessment and Plan 87yo female with history of HTN, glaucoma, atrial fibrillation, small bowel resection due to SBO, GERD, and lumbar decompression/fusion in early September 2017 for severe spinal stenosis who was admitted from home due to intractable back pain and need for recurrent lumbar back surgery. Recent imaging of the lumbar spine showed an L2 compression fracture. In addition to her musculoskeletal complaints she complained of severe dizziness/orthostasis and orthostatics were indeed quite positive on day of admission. 1. L2 compression fracture, intractable lumbar back pain - POD #2 s/p lumbar revision back surgery by Dr. Tomlin. Defer pain management, disposition, etc to ortho. 2. orthostasis - this was likely due to HCTZ use at home. Resolved. At discharge I would likely not resume the HCTZ. 3. HTN - resumed coreg; resume losartan albeit at lower dose of 50mg daily. Hold HCTZ. 4. glaucoma - continue home drops. 5. GERD - PPI. 6. recent UTI - repeat u/a wnl. 7. DVT proph - SCDs. Holding eliquis that she had been taking at home for her a. fib. 8. a. fib - rates excellent with coreg. Holding eliquis. 9. hyponatremia - likely due to HCTZ use. Resolved. BMP am for stability. 10. depression - celexa. 11. acute blood loss anemia - s/p 2 units PRBCs with improved H/H. H/H again acceptable today. CBC am. Start ferrous sulfate 325mg BID. await bowel movement no clinical signs of ileus will continue to follow Continued [facility] stay due to: ambulation difficulties, multiple IV medications needed Discharge planning: rehab hospital
[2017-11-17] MEDS: POLYETHYLENE (MIRALAX) 17 GM PACK PO SCH ×4 (06:13→17:19)
[2017-11-17 06:18] LABS: HEMATOCRIT 28.7 % (37-47); HEMOGLOBIN 9.5 g/dL (12.0-16.0); MEAN CELL VOLUME 88.9 fL (80-100); MEAN CORPUSCULAR HEMOGLOBIN 29.4 pg (25-34); MEAN CORPUSCULAR HGB CONC 33.1 g/dl (32-36); MEAN PLATELET VOLUME 9.9 fL (7.4-10.4); PLATELET COUNT 228 K/uL (130-400); RED CELL DISTRIBUTION WIDTH CV 15.4 % (11.5-14.5); RED CELL DISTRIBUTION WIDTH SD 50.1 fL (36.4-46.3); WHITE BLOOD COUNT 9.55 K/uL (4.8-10.8)
[2017-11-17 06:53] LABS: CALCIUM 9.5 mg/dl (8.5-10.1); CREATININE 0.73 mg/dl (0.60-1.20); POTASSIUM 4.3 mmol/L (3.5-5.1)
[2017-11-17 07:25] VITALS: BP 110/69; PULSE 76; TEMP 36.6; O2SAT 98
[2017-11-17 07:45] VITALS: O2SAT 98
[2017-11-17] MEDS: DORZOLAMIDE/TIMOLOL 22.3/6.8MG/ML 10 ML BTL OP SCH ×2 (08:39→20:35)
[2017-11-17] MEDS: CITALOPRAM 20 MG TAB PO SCH (08:40)
[2017-11-17] MEDS: PANTOprazole SOD 40 MG TAB PO SCH (08:40)
[2017-11-17] MEDS: LOSARTAN POTASSIUM 50 MG TAB PO SCH (08:41)
[2017-11-17] MEDS: CARVEDILOL 12.5 MG TAB PO SCH ×2 (08:41→20:38)
[2017-11-17] MEDS: POTASSIUM CHLORIDE 10 MEQ TABCR PO SCH (08:41)
[2017-11-17] MEDS: NYSTATIN SUSP 500,000 U/5 ML UDC PO SCH ×4 (08:41→20:36)
[2017-11-17] MEDS: FERROUS SULFATE 325 MG TAB PO SCH ×2 (08:45→20:36)
[2017-11-17 08:48] VITALS: BP 115/75; PULSE 78
--- NOTE | 2017-11-17 10:29 | PROGRESS NOTE ---
DATE: 11/17/2017 SUBJECTIVE: She is postoperative day 3 revision decompression thoracolumbar fusion. She states she has complaints of soreness. She does not want to take anything stronger than Tylenol due to delirium recently. She denies radicular leg pain. RICKY drain output last shift was 75 mL. She reports she is passing flatus but no bowel movement yet. H and H this morning are 9.5 and 28.7 respectively. Yesterday in physical therapy she was ambulating about a little over 100 feet. She does have her TLSO brace as well. PHYSICAL EXAMINATION: GENERAL: She is lying in bed. No obvious distress. Dressing is clean, dry and intact. EXTREMITIES: Strength is intact bilateral lower extremities. Calves are soft and nontender bilaterally. ASSESSMENT: Postoperative day 3 revision decompression thoracolumbar fusion. PLAN: She will continue with physical therapy as well as occupational therapy today. Maintain RICKY drain. We are currently awaiting SNF versus [facility] stay and bed availability. Hopefully, will be able to discharge to one of these facilities tomorrow. DVT prophylaxis is in the form of TEDs and SCDs. We will continue with more aggressive bowel regimen today.
[2017-11-17] MEDS: ACETAMINOPHEN IV 100 ML IV PRN (12:26)
[2017-11-17 16:17] VITALS: BP 97/58; PULSE 71; TEMP 36.8; O2SAT 96
[2017-11-17] MEDS ORDERED: TAPENTADOL HCL 50 MG TAB PO STA (16:41)
[2017-11-17] MEDS ORDERED: NURSING VERBAL MED ORDER ONE ×2 (16:45→20:45)
[2017-11-17 20:30] VITALS: BP 89/56; PULSE 64
[2017-11-17] MEDS: TRAVOPROST Z 0.004% OPH SOLN 2.5 ML BTL OP SCH (20:35)
[2017-11-17] MEDS: DOCUSATE SODIUM/SENNA 50/8.6MG TAB PO SCH (20:36)
[2017-11-17 22:55] VITALS: BP 119/70; PULSE 62; TEMP 36.8; O2SAT 97
[2017-11-18] VITALS (7 sets, daily range): BP systolic 98–123; BP diastolic 62–78; PULSE 59–73; TEMP 36.8–37.3; O2SAT 92–98
[2017-11-18] MEDS: ACETAMINOPHEN 500 MG TAB PO PRN ×3 (00:25→21:42)
--- NOTE | 2017-11-18 05:35 | Progress Note ---
Subjective Date of Service: Nov 17, 2017. Subjective Pt evaluation today including: conversation w/ patient, conversation w/ family (2 sons at bedside), physical exam, chart review, lab review, conversation w/ medical cost consultant (orthopedics), review of inpatient medication list Pain: back - lumbar; no leg pain PO Intake: fair at best; believes pain is decreasing her appetite Voiding: no voiding problems finally had small bowel movement and passing flatus main complaint is that of back pain tylenol is not sufficiently controlling pain she cannot tolerate narcotics of any kind or tramadol I discussed her pain management with Jeanette ROSEN from ortho -- we elected to try nucynta 50mg po x 1 I re-evaluated her about 2 to 2.5 hours after the dose of nucynta - patient reports she slept comfortably for 2 hours upon awakening she had mild discomfort but was able to ambulate from the bed to the chair she was lucid and without confusion son expressed concerns about the nucynta Problem List Medical Problems: (1) Chills (without fever) Status: Acute (2) Confusion Status: Acute (3) Generalized weakness Status: Acute (4) Hallucination Status: Acute (5) Hyponatremia Status: Acute (6) Lumbar back pain Status: Acute (7) Post-operative pain Status: Acute (8) UTI (urinary tract infection) Status: Acute Review of Systems Respiratory: No cough, No shortness of breath, No dyspnea on exertion Cardiac: No chest pain Abdomen: + nausea (occasional ), No pain Female : No dysuria Objective Vital Signs Date Time Temp Pulse Resp B/P (MAP) Pulse Ox O2 Delivery O2 Flow Rate FiO2 11/17/17 16:17 36.8 71 16 97/58 (71) 96 Room Air 11/17/17 16:10 Room Air 11/17/17 08:48 78 115/75 (88) 11/17/17 07:45 98 Room Air 11/17/17 07:25 36.6 76 16 110/69 (83) 98 Room Air 11/16/17 23:45 Room Air 11/16/17 23:25 37.7 67 16 105/68 (80) 96 Room Air 11/16/17 20:32 66 117/71 (86) Physical Exam General Appearance: no apparent distress ENT: pharynx normal Neck: no JVD Respiratory/Chest: lungs clear, no respiratory distress, no accessory muscle use Cardiovascular: no gallop, no murmur, + irregularly irregular Abdomen: normal bowel sounds, non tender, soft, no organomegaly Extremities: no pedal edema Neurologic/Psychiatric: alert, oriented x 3 Laboratory Results Last 24 Hours Test 11/17/17 06:07 White Blood Count 9.55 K/uL Red Blood Count 3.23 M/uL Hemoglobin 9.5 g/dL Hematocrit 28.7 % Mean Corpuscular Volume 88.9 fL Mean Corpuscular Hemoglobin 29.4 pg Mean Corpuscular Hemoglobin Concent 33.1 g/dl RDW Standard Deviation 50.1 fL RDW Coefficient of Variation 15.4 % Platelet Count 228 K/uL Mean Platelet Volume 9.9 fL Sodium Level 134 mmol/L Potassium Level 4.3 mmol/L Chloride Level 101 mmol/L Carbon Dioxide Level 27 mmol/L Anion Gap 7.0 mmol/L Blood Urea Nitrogen 12 mg/dl Creatinine 0.73 mg/dl Est Creatinine Clear Calc Drug Dose 59.8 ml/min Estimated GFR () 87.0 Estimated GFR (Non- 75.1 BUN/Creatinine Ratio 15.9 Random Glucose 117 mg/dl Calcium Level 9.5 mg/dl Assessment and Plan 87yo female with history of HTN, glaucoma, atrial fibrillation, small bowel resection due to SBO, GERD, and lumbar decompression/fusion in early September 2017 for severe spinal stenosis who was admitted from home due to intractable back pain and need for recurrent lumbar back surgery. Recent imaging of the lumbar spine showed an L2 compression fracture. In addition to her musculoskeletal complaints she complained of severe dizziness/orthostasis and orthostatics were indeed quite positive on day of admission. 1. L2 compression fracture, intractable lumbar back pain - POD #3 s/p lumbar revision back surgery by Dr. Tomlin. 2. orthostasis - this was likely due to HCTZ use at home. Resolved. At discharge I would likely not resume the HCTZ. She may need lower dose of losartan as well. 3. HTN - resumed coreg; resume losartan albeit at lower dose of 50mg daily. Hold HCTZ. 4. glaucoma - continue home drops. 5. GERD - PPI. 6. recent UTI - repeat u/a wnl. 7. DVT proph - SCDs. Holding eliquis that she had been taking at home for her a. fib. 8. a. fib - rates excellent with coreg. Holding eliquis. 9. hyponatremia - likely due to HCTZ use. Resolved. BMP with Na 134 today; repeat the BMP in am. 10. depression - celexa. 11. acute blood loss anemia - s/p 2 units PRBCs with improved H/H. H/H again acceptable today. CBC am. Ferrous sulfate 325mg BID. 12. pain control - at this point, given the reluctancy of the patient's son ( with whom she lives) about use of nucynta (even though patient tolerated this well) --- consider pain management consultation. I discussed this with Jeanette ROSEN from ortho. will continue to follow Continued [facility] stay due to: inadequate oral pain control, ambulation difficulties Discharge planning: care home facility (vs home)
[2017-11-18 06:50] LABS: CALCIUM 9.4 mg/dl (8.5-10.1); CREATININE 0.68 mg/dl (0.60-1.20); POTASSIUM 4.2 mmol/L (3.5-5.1)
[2017-11-18] MEDS: CARVEDILOL 12.5 MG TAB PO SCH (08:36)
[2017-11-18] MEDS: CITALOPRAM 20 MG TAB PO SCH (08:36)
[2017-11-18] MEDS: NYSTATIN SUSP 500,000 U/5 ML UDC PO SCH ×4 (08:37→19:47)
[2017-11-18] MEDS: PANTOprazole SOD 40 MG TAB PO SCH (08:37)
[2017-11-18] MEDS: POTASSIUM CHLORIDE 10 MEQ TABCR PO SCH (08:37)
[2017-11-18] MEDS: LOSARTAN POTASSIUM 50 MG TAB PO SCH (08:37)
[2017-11-18] MEDS: FERROUS SULFATE 325 MG TAB PO SCH ×2 (08:37→21:33)
[2017-11-18] MEDS: DORZOLAMIDE/TIMOLOL 22.3/6.8MG/ML 10 ML BTL OP SCH ×2 (08:39→21:37)
[2017-11-18] MEDS ORDERED: TAPENTADOL HCL 50 MG TAB PO PRN (09:15)
--- NOTE | 2017-11-18 13:17 | Progress Note ---
Progress Note Date of Service Nov 18, 2017. Progress Note Patient's having back pain mostly at night. She did have one dose of Nucynta last evening. She states she was somewhat delirious this morning. Her sons expressed concern regarding this reaction to narcotics. She has however when uncomfortable evenings. Otherwise she is progressing appropriately with therapy. We will trial 2 mg of Dilaudid p.o. this evening. We will hold the Nucynta. If she tolerates this relatively well will discharge home tomorrow.
[2017-11-18] MEDS ORDERED: CZR50 PO (17:56)
--- NOTE | 2017-11-18 18:08 | Progress Note ---
Subjective Date of Service: Nov 18, 2017. Subjective Pt evaluation today including: conversation w/ patient, conversation w/ family (2 sons at bedside), physical exam, chart review, lab review, conversation w/ sr solutions consultant (ortho, social work), review of inpatient medication list Pain: back, but "better" than yesterday PO Intake: fair today Voiding: no voiding problems had large bowel movement today minimal nausea no dyspnea no cp plan is for home tomorrow with HH services ortho has ordered PO dilaudid to use prn patient without any confusion Problem List Medical Problems: (1) Chills (without fever) Status: Acute (2) Confusion Status: Acute (3) Generalized weakness Status: Acute (4) Hallucination Status: Acute (5) Hyponatremia Status: Acute (6) Lumbar back pain Status: Acute (7) Post-operative pain Status: Acute (8) UTI (urinary tract infection) Status: Acute Review of Systems Constitutional: No fever, No chills Respiratory: No shortness of breath, No dyspnea on exertion Cardiac: No chest pain Abdomen: No pain Objective Vital Signs Date Time Temp Pulse Resp B/P (MAP) Pulse Ox O2 Delivery O2 Flow Rate FiO2 11/18/17 16:45 92 Room Air 11/18/17 15:07 37.1 59 17 102/66 (78) 92 Room Air 11/18/17 13:50 62 108/68 (81) 99/64 (76) 100/65 (77) 11/18/17 08:36 61 107/66 (80) 11/18/17 07:00 Room Air 11/18/17 06:47 36.8 59 18 123/78 (93) 98 Room Air 11/18/17 00:15 Room Air 11/17/17 22:55 36.8 62 16 119/70 (86) 97 Room Air 11/17/17 20:30 64 89/56 (67) Physical Exam General Appearance: no apparent distress, + pertinent finding (lying comfortably in bed) ENT: pharynx normal Neck: no JVD Respiratory/Chest: lungs clear, no respiratory distress, no accessory muscle use Cardiovascular: no gallop, no murmur, + irregularly irregular Abdomen: normal bowel sounds, non tender, soft, no organomegaly Extremities: no pedal edema Neurologic/Psychiatric: no motor/sensory deficits, alert, oriented x 3 Skin: no rash Laboratory Results Last 24 Hours Test 11/18/17 06:05 Hemoglobin 9.2 g/dL Sodium Level 135 mmol/L Potassium Level 4.2 mmol/L Chloride Level 101 mmol/L Carbon Dioxide Level 28 mmol/L Anion Gap 7.0 mmol/L Blood Urea Nitrogen 11 mg/dl Creatinine 0.68 mg/dl Est Creatinine Clear Calc Drug Dose 64.3 ml/min Estimated GFR () 92.4 Estimated GFR (Non- 79.8 BUN/Creatinine Ratio 15.7 Random Glucose 111 mg/dl Calcium Level 9.4 mg/dl Magnesium Level 2.1 mg/dl Assessment and Plan 87yo female with history of HTN, glaucoma, atrial fibrillation, small bowel resection due to SBO, GERD, and lumbar decompression/fusion in early September 2017 for severe spinal stenosis who was admitted from home due to intractable back pain and need for recurrent lumbar back surgery. Recent imaging of the lumbar spine showed an L2 compression fracture. In addition to her musculoskeletal complaints she complained of severe dizziness/orthostasis and orthostatics were indeed quite positive on day of admission. 1. L2 compression fracture, intractable lumbar back pain - POD #4 s/p lumbar revision back surgery by Dr. Tomlin. 2. orthostasis - this was likely due to HCTZ use at home. Resolved. At discharge I would not resume the HCTZ. Dose of losartan lowered to 50mg daily. Would also cut coreg dose to 6.25mg BID. 3. HTN - resumed coreg albeit at lower dose (needs such for a. fib rate control ); resume losartan at lower dose of 50mg daily. STOPPED HCTZ. 4. glaucoma - continue home drops. 5. GERD - PPI. 6. recent UTI - repeat u/a wnl. 7. DVT proph - SCDs. Holding eliquis that she had been taking at home for her a. fib. Defer to ortho when safe to resume eliquis. 8. a. fib - rates excellent with coreg. Holding eliquis. 9. hyponatremia - likely due to HCTZ use. Resolved. 10. depression - celexa. 11. acute blood loss anemia - s/p 2 units PRBCs with improved H/H. H/H stable since. Ferrous sulfate 325mg BID. Recommend 2-3 months of Rx at discharge. 12. pain control - defer to orthopedics. will continue to follow. Continued [facility] stay due to: inadequate oral pain control, ambulation difficulties Discharge planning: home with home health
[2017-11-18] MEDS: DOCUSATE SODIUM/SENNA 50/8.6MG TAB PO SCH (19:47)
[2017-11-18] MEDS: HYDROmorphone HCL 2 MG TAB PO PRN (19:51)
[2017-11-18] MEDS: CARVEDILOL 6.25 MG TAB PO SCH (21:36)
[2017-11-18] MEDS: TRAVOPROST Z 0.004% OPH SOLN 2.5 ML BTL OP SCH (21:37)
[2017-11-19] MEDS: ACETAMINOPHEN 500 MG TAB PO PRN (05:17)
[2017-11-19 08:20] VITALS: BP 124/76; PULSE 67; PULSE 70; TEMP 36.9; O2SAT 96
[2017-11-19] MEDS: NYSTATIN SUSP 500,000 U/5 ML UDC PO SCH (09:00)
[2017-11-19] MEDS: HYDROmorphone HCL 2 MG TAB PO PRN (09:14)
[2017-11-19] MEDS: PANTOprazole SOD 40 MG TAB PO SCH (09:15)
[2017-11-19] MEDS: POTASSIUM CHLORIDE 10 MEQ TABCR PO SCH (09:15)
[2017-11-19] MEDS: CITALOPRAM 20 MG TAB PO SCH (09:15)
[2017-11-19] MEDS: LOSARTAN POTASSIUM 50 MG TAB PO SCH (09:15)
[2017-11-19] MEDS: CARVEDILOL 6.25 MG TAB PO SCH (09:16)
[2017-11-19] MEDS: FERROUS SULFATE 325 MG TAB PO SCH (09:17)
[2017-11-19] MEDS: DORZOLAMIDE/TIMOLOL 22.3/6.8MG/ML 10 ML BTL OP SCH (09:17)
[2017-11-19] MEDS ORDERED: DLD/2 PO (10:19)
--- NOTE | 2017-11-19 10:20 | Discharge Instructions ---
Discharge Instructions Date of Service Nov 19, 2017. Admission Reason for Admission: L2 Compression Fracture Discharge Discharge Diagnosis / Problem: lumbar stenosis Discharge Goals Goal(s): Improve function Activity Recommendations Activity Limitations: per Instructions/Follow-up section . Instructions / Follow-Up Instructions / Follow-Up ACTIVITY RECOMMENDATIONS: SELF CARE INSTRUCTIONS AFTER THORACIC/LUMBAR FUSIONS 1. You may walk to your tolerance. It is good exercise for your legs and back. Expect some back and intermittent leg aches and pains. 2. You may perform "counter-top" level activities (make a sandwich, susan with a project, etc.). 3. No bending or lifting of more than 10 pounds or back twisting of any nature (roll like a log when turning in bed). 4. You may ride in a car for 20-30 minutes at a time. No driving until after your first visit with your doctor. 5. Frequent changes of position and restricting sitting to 30 minutes at a time will help limit the amount of back spasms and stiffness you may experience. 6. You may discontinue the use of ambulatory aids (cane, crutches, etc.) once your strength and confidence allow. 7. You may software trainer the shower and let water strike your incision when you arrive home at least once daily. Do not take a tub bath, sit in a hot tub or go into a swimming pool until after your first recheck in the office. SPECIAL CARE INSTRUCTIONS: VERY IMPORTANT TO READ AND REVIEW A. Your surgical incision has been closed with a cosmetic suture under the skin that will dissolve in about 6 weeks. In 14 days, you can use a pair of clean scissors and cut the suture that is left outside of the skin at the ends of your incision. 1. The small skin tapes can be removed 7 days after surgery if they have not fallen off by that point. 2. You may keep the wound open to air as much as possible to promote healing after post-op day number 5 unless told otherwise by your doctor. 3. If you think the wound looks like it is becoming infected (redness or worsening drainage) and/or you are experiencing fever, chill or worsening back pain and muscle spasms, contact the office so that we may evaluate you as soon as possible. B. Complications are uncommon, but please contact us if you have any signs or symptoms of: 1. wound infection (fever higher than 102.5 degrees F, redness, separation of wound, drainage, or increasing pain from the incision) 2. blood clots in legs (pain, swelling, redness and warmth in legs) 3. urinary tract infection (fever higher than 102.5 degrees F, burning upon urination or increased frequency of urination) 4. nerve problems (inability to walk on your toes or heels, numbness, loss of bowel or bladder control) 5. any other symptoms that concern you C. Please call the office at if you have any concerns or questions about your operation or recovery. D. No smoking! Smoking drastically decreases the chance of a solid fusion. E. Do not take any anti-inflammatory medications (Indocin, Advil, Motrin, Aspirin, Naprosyn, etc.) as these may inhibit the chance of a solid fusion. Tylenol is okay to take for pain. MANAGING PAIN AFTER SPINAL SURGERY 1. Narcotic medication is intended for short-term use and will be provided for surgical pain. Surgical pain usually lasts for a period of 4-6 weeks. Narcotic medication includes Percocet, Vicodin, Darvocet, Tylenol #3 or Lortab. 2. Longer-term pain is more appropriately treated with non-narcotic medication such as Tylenol ES. 3. Muscle spasm is not appropriately treated with narcotics. Muscle relaxers such as Soma, Flexeril or Skelaxin can be used along with Tylenol ES. 4. Remember that we all live with some "aches and pains". This is not unusual or uncommon after an injury or as we get older. a. Back pain is expected and may include muscle spasms for 4 to 6 weeks after surgery. The pain should gradually improve. If the pain worsens for no apparent reason, please contact the office. b. Intermittent leg pain may also be experienced and should not be concerned about unless it worsens for no apparent reason. If so, please contact the office. 5. We will provide appropriate medication within the normal guidelines of their prescribed use. We will also be very cautious and aware of potential abuse and extended duration of patients' medication needs. a. Pain medications are for your comfort and to assist with sleep and rest so that the tissue can heal. They are not provided in order to return to normal activity and should not be used through the day. To do so or worsening pain at night can result from ongoing tissue damage and development of tolerance to the prescribed medicine. 6. Please allow 2-3 days to process refills. Prescriptions will not be mailed but must be picked up at the office. FOLLOW UP VISIT: Keep your scheduled follow-up appointment. Any questions, please call the office at . Current Hospital Diet Patient's current hospital diet: AHA Diet (Heart Healthy) Discharge Diet Recommended Diet: Regular Diet Procedures Procedures Performed: 1. Removal of posterior instrumentation L2 pedicle screw and end caps for the remaining pedicle screws L3 through S1. #2 placement posterior segmental instrumentation T11 T12-L1. #3 posterior spinal fusion T11-L3. #4 placement InFUSE collagen sponge combined with master graft in the posterior lateral gutters. #5 placement of stimulant beads impregnated with vancomycin and gentamicin. Pending Studies Studies pending at discharge: no Laboratory Results Hemoglobin A1c Test 11/15/17 13:27 Range/Units Estimated Average Glucose 114 mg/dl Hemoglobin A1c 5.6 4.5-5.6 % Medical Emergencies . Who to Call and When: Medical Emergencies: If at any time you feel your situation is an emergency, please call 911 immediately. . Non-Emergent Contact Non-Emergency issues call your: Primary Care Provider . "Provider Documentation" section prepared by Too Tomlin. .
--- NOTE | 2017-11-19 10:31 | Discharge Summary ---
Orthopedic Discharge Summary Admission Date/Reason Nov 13, 2017 at 13:44 L2 Compression Fracture. Discharge Date/Disposition Nov 19, 2017 Home with services Diagnosis Principal Diagnosis: Lumbar spinal stenosis with burst fracture of L2 Admission Physical Exam As per Admitting History & Physical. Hospital Course Patient was admitted with marked neurologic and physical decline. She underwent thoracolumbar stabilization following day. She tolerated this well was taken to the orthopedic floor postoperatively. Her postop course was largely uneventful with steady improvement throughout her stay. She was subsequently discharged home with home health. Discharge orders instructions can be found on the chart for further review. Discharge Instructions Please refer to the electronic Patient Visit Report (Discharge Instructions) for additional information.
[2017-11-19 10:44] VITALS: BP 124/76; PULSE 70; TEMP 36.9; O2SAT 96
[2017-11-19 11:37] VITALS: BP 118/52; PULSE 76; TEMP 37.2; O2SAT 94
== END 2017-11-19 12:40 | disposition home health service (06) | DRG 457 ==
LOC: C.3E 13:44
PROVIDERS: ADMIT Orthopaedic Surgery Orthopaedic Surgery of the Spine; ATTEND Orthopaedic Surgery Orthopaedic Surgery of the Spine
PROC: 0RGA071 Fusion of Thoracolumbar Vertebral Joint with Autologous Tissue Substitute, Posterior Approach, Posterior Column, Open Approach (ICD-10-PCS; principal; 2017-11-14 11:45)
PROC: 0SP004Z Removal of Internal Fixation Device from Lumbar Vertebral Joint, Open Approach (ICD-10-PCS; principal; 2017-11-14 11:45)
PROC: 0RG6071 Fusion of Thoracic Vertebral Joint with Autologous Tissue Substitute, Posterior Approach, Posterior Column, Open Approach (ICD-10-PCS; principal; 2017-11-14 11:45)
DX: M48.56XA Collapsed vertebra, not elsewhere classified, lumbar region, initial encounter for fracture (principal); D62 Acute posthemorrhagic anemia; I10 Essential (primary) hypertension; I48.91 Unspecified atrial fibrillation; K21.9 Gastro-esophageal reflux disease without esophagitis; F32.9 Major depressive disorder, single episode, unspecified; E87.6 Hypokalemia; H40.9 Unspecified glaucoma; T50.2X5A Adverse effect of carbonic-anhydrase inhibitors, benzothiadiazides and other diuretics, initial encounter; Z79.01 Long term (current) use of anticoagulants; Z79.899 Other long term (current) drug therapy; Z87.891 Personal history of nicotine dependence; Z98.1 Arthrodesis status; Z88.0 Allergy status to penicillin; Z88.1 Allergy status to other antibiotic agents